=== PATIENT | male | born 1955 | race Caucasian/White ===

== ENCOUNTER → 2016-07-04 | Outpatient (CLI) | payer OTHER ==
[~2016-07-04] MED LIST: ACYC-251 PO; ALBU1AER9 INH; ALLO300T2 PO; AMT50 PO; ASPCH81X PO; ATOR10TA88 PO; BISOPROL PO; CITA40TA12 PO; CLR10 PO; CRFL PO; FLNIN NAE; FLUT110A INH; HYDR-5688 PO; ISOS30TA3 PO; LORA-741 PO; LOSA25TA18 PO; MAGN400T6 PO; METO-157 PO; OMEP20CA9 PO; OPTIRAY 320 IV PRN; OXYC-409 PO; POLY150C12; POTA20TA16 PO; TIOTCAP INH; TRAM-10 PO
--- NOTE | 2016-07-04 12:22 | DIAGNOSTIC IMAGING REPORT ---
CT SCAN OF THE CHEST WITH IV CONTRAST CLINICAL HISTORY: Non-Hodgkin's lymphoma. COMPARISON STUDY: Chest CT scans dated 03/17/2016 and 06/05/2013. TECHNIQUE: Following the IV administration of 118 cc of Optiray 320, CT scan of the thorax was performed from the thoracic inlet to the upper abdomen. Images are reviewed in the axial, sagittal, and coronal planes. IV contrast was administered without complication. CT DOSE: 957.20 mGy.cm FINDINGS: Thyroid: Imaged portions of the thyroid gland are normal in size and attenuation. Thoracic aorta: There is atherosclerotic calcification of the thoracic aorta, which is normal in caliber and demonstrates standard 3-vessel arch anatomy. No dissection is seen. There is approximately 50% focal stenosis identified in the left subclavian artery on axial image #54. A left subclavian central venous infusion port is in place. Pulmonary vasculature: The pulmonary trunk is normal in caliber. There are no filling defects identified in the central pulmonary vessels to indicate pulmonary embolus. Note that this examination was not protocoled for evaluation of the pulmonary arteries. Heart: The heart is normal in size and configuration, and there is trace pericardial fluid. There are scattered coronary artery calcifications. Lungs and pleural spaces: Fluid/secretions are present within the right mainstem bronchus. The trachea appears clear. Mild emphysematous change is observed. There is no airspace consolidation or pleural effusion. Linear scarring is noted in the lingula. There are scattered tiny calcified granulomas. Mediastinum: There is no mediastinal lymphadenopathy. Makenna: Clear. Axillae: There is no axillary lymphadenopathy. Upper abdomen: The liver appears enlarged and steatotic. The spleen is enlarged, measuring 16.2 cm in length. The partially imaged kidneys demonstrate cortical atrophy. Skeletal structures: No lytic or blastic bony lesions are seen. IMPRESSION: 1. There is no lymphadenopathy identified in the thorax. 2. Mild emphysema. 3. No airspace consolidation or pleural effusion is seen. 4. There is high-grade (approximately 50%) stenosis of the left subclavian artery. 5. Hepatomegaly and hepatic steatosis. 6. Splenomegaly. 7. Additional findings as above. Electronically signed by: Yosi Mejia M.D. 07/04/2016 12:21 PM Dictated Date/Time: 07/04/2016 12:15 PM
--- NOTE | 2016-07-04 12:23 | DIAGNOSTIC IMAGING REPORT ---
CT OF THE ABDOMEN AND PELVIS WITH CONTRAST CLINICAL HISTORY: Non-Hodgkin's lymphoma. COMPARISON STUDY: CT of the abdomen and pelvis March 17, 2016. TECHNIQUE: Following IV administration of 118 mL of Optiray-320, axial images of the abdomen and pelvis were obtained from the lung bases to the proximal femurs. Images were reviewed in the axial, sagittal, and coronal planes. IV contrast was administered without complication. Oral contrast was administered. FINDINGS: The chest will be reported separately. Mild splenomegaly is unchanged. There is fatty infiltration of the liver. Several hepatic lesions are unchanged since earlier exams. The lateral segment lesions likely reflect hemangiomas. No new hepatic lesions are present. No enlarged abdominal or pelvic lymph nodes are present. A small left adrenal nodule is unchanged since earlier exams. This is benign given stability. Multifocal scarring of the right kidney is again noted. There is no hydronephrosis. There is no biliary or pancreatic ductal dilatation. Caliber and wall thickness of small and large bowel are normal. There are no suspicious osseous lesions within visualized skeletal structures. IMPRESSION: 1. No abdominal or pelvic lymphadenopathy. 2. Stable splenomegaly. No change in appearance of the abdomen or pelvis since prior exam. Electronically signed by: Callum Olson M.D. 07/04/2016 12:21 PM Dictated Date/Time: 07/04/2016 12:10 PM
== END | disposition home or self-care (01) ==
LOC: C.CTS 09:32
PROVIDERS: ATTEND Internal Medicine Hematology & Oncology
DX: C83.10 Mantle cell lymphoma, unspecified site (principal); R16.1 Splenomegaly, not elsewhere classified; I87.1 Compression of vein; R16.0 Hepatomegaly, not elsewhere classified; K76.0 Fatty (change of) liver, not elsewhere classified

== ENCOUNTER → 2017-03-16 | Outpatient (CLI) | payer OTHER ==
[~2017-03-16] MED LIST changes: +ACYC-223 PO; -ACYC-251 PO; +ATOR10TA82 PO; -ATOR10TA88 PO; -OPTIRAY 320 IV PRN
--- NOTE | 2017-03-16 08:37 | DIAGNOSTIC IMAGING REPORT ---
SINUSES-MAXILLOFACIAL W/O HISTORY: 61 years-old Male J30.9 Allergic sinusitis history of lymphoma. COMPARISON: PET CT 10/26/2013 TECHNIQUE: Multiple axial CT images of the paranasal sinuses maxillofacial bones were obtained without contrast. A dose lowering technique was used consistent with the principals of CALVIN. FINDINGS: Mild mucoperiosteal thickening of the right maxillary sinus and to lesser extent the left maxillary sinus. Polypoid mucosal thickening of the posterior right maxillary antrum measures 1.3 x 1.0 cm. Polypoid mucosal thickening of the anterior left maxillary antrum measures 1.1 x 1.0 cm. Mild mucosal thickening of the ethmoid air cells and inferior frontal sinuses also noted. Sphenoid sinuses are generally patent. Bilateral sphenoethmoidal, frontoethmoidal and bilateral maxillary ostiomeatal units are patent. No Sheeba cell identified. No large nadeem bullosa. Carol sandra appears normal. There is mild leftward bowing and spurring of the nasal septum. Mastoid air cells and middle ear cavities are clear. No acute facial bone fracture identified. Multifocal periodontal disease is noted with pedicle cysts seen involving the right maxillary second molar as seen on image 27 series 301 and image 72 series 3. Streak artifact from dental amalgam limits evaluation of the oral pharynx. Imaged soft tissues are unremarkable. Orbits are symmetric. The imaged intracranial structures demonstrate no acute amount appear there is a suggested arachnoid cyst within the region of the quadrigeminal plate cistern. IMPRESSION: 1. Mild mucoperiosteal thickening of the bilateral maxillary sinuses with areas of multifocal polypoid mucosal disease as above. Mild ethmoid and inferior frontal sinus disease also noted without evidence of maxillary ostiomeatal occlusion. 2. Mild leftward bowing and spurring of the nasal septum. The above report was generated using voice recognition software. It may contain grammatical, syntax or spelling errors. Electronically signed by: Xavier Wilburn M.D. 03/16/2017 8:36 AM Dictated Date/Time: 03/16/2017 8:28 AM
== END | disposition home or self-care (01) ==
LOC: C.CTS 08:05
PROVIDERS: ATTEND Internal Medicine Pulmonary Disease
DX: J30.9 Allergic rhinitis, unspecified (principal)

== ENCOUNTER 2017-03-20 08:27 | Inpatient (IN) | payer OTHER ==
[~2017-03-20] VITALS: Ht 160 cm; Wt 74.5 kg
[2017-03-20] VITALS (20 sets, daily range): BP systolic 108–148; BP diastolic 56–107; PULSE 85–107; TEMP 36.3–37.1; O2SAT 86–99; Ht 160 cm; Wt 74.5 kg
--- NOTE | 2017-03-20 07:28 | Procedure Note ---
Pre-Mod Sedation Assessment General Date of Moderate Sedation: Mar 20, 2017. Pre-Sedation Airway Assessment Smoking Status: Former Smoker Mallampati Classification: Class II ASA Classification: Class II Procedure Planning Contraindications-for Mod Sed: None Yes Notes The planned sedation has been discussed with the patient and consent obtained. I have identified the patient, determined the appropriateness of sedation and have assessed the patient immediately prior to the procedure. All medicine(s) and interventions are by my order.
--- NOTE | 2017-03-20 07:28 | History & Physical Bridge Note ---
H&P Re-Evaluation Bridge Note: I have examined the patient, reviewed the History & Physical and in the interval since the performance of the History & Physical I have noted the following changes of clinical significance: No changes noted
[~2017-03-20 08:27] MED LIST changes: -POLY150C12; +POLY150C12 PO
--- NOTE | 2017-03-20 09:48 | Discharge Instructions ---
Discharge Instructions Date of Service Mar 20, 2017. Admission Reason for Admission: Asthma, Copd, Shortness Of Breath Discharge Discharge Diagnosis / Problem: Chronic mucopurulent bronchitis Discharge Goals Goal(s): Therapeutic intervention Activity Recommendations Activity Limitations: resume your previous activity Lifting Limitations: none Exercise/Sports Limitations: none May Resume Sexual Activity: when tolerated Shower/Bathe: no limitations Driving or Machine Use: no limitations none . Instructions / Follow-Up Instructions / Follow-Up ACTIVITY RECOMMENDATIONS: * Rest today, resume normal activity tomorrow. * Do not drive today. SPECIAL CARE INSTRUCTIONS: * Call your physician if you experience any chest or shoulder pain, fever, coughing, spitting up blood (more than 2 teaspoons) or excessive shortness of breath. * Remove dressing from IV site (where needle was placed into the vein) after 2 hours. Apply a warm, moist compress to site if irritation occurs. Call physician if site becomes red or painful to touch. FOLLOW UP VISIT: * Keep any scheduled doctor appointments. Current Hospital Diet Patient's current hospital diet: Discharge Diet Recommended Diet: Regular Diet Fluid Restriction: None Pending Studies Studies pending at discharge: no Medical Emergencies . Who to Call and When: Medical Emergencies: If at any time you feel your situation is an emergency, please call 911 immediately. . Non-Emergent Contact Non-Emergency issues call your: Network Communications Engineer Call Non-Emergent contact if: temperature is above 101 ACTIVITY RECOMMENDATIONS: * Rest today, resume normal activity tomorrow. * Do not drive today. SPECIAL CARE INSTRUCTIONS: * Call your physician if you experience any chest or shoulder pain, fever, coughing, spitting up blood (more than 2 teaspoons) or excessive shortness of breath. * Remove dressing from IV site (where needle was placed into the vein) after 2 hours. Apply a warm, moist compress to site if irritation occurs. Call physician if site becomes red or painful to touch. FOLLOW UP VISIT: * Keep any scheduled doctor appointments. . . "Provider Documentation" section prepared by Isiah Collins. . VTE Core Measure Inpt VTE Proph given/why not?: Treatment not indicated
[2017-03-20] MEDS ORDERED: NURSING VERBAL MED ORDER ONE ×3 (10:45→20:30)
[2017-03-20] MEDS ORDERED: MIDAZOLAM HCL 5 MG/ML 1 ML VIAL IV ONE (11:00)
[2017-03-20] MEDS ORDERED: FENTANYL CITRATE INJ 50 MCG/1 ML 2 ML VIAL IV ONE (11:00)
[2017-03-20] MEDS ORDERED: METHYLPREDNISOLONE IV 40 MG in SYRINGE 0 ML IV SCH (13:00)
[2017-03-20] MEDS ORDERED: ALBUT/IPRATROP 3MG/0.5MG NEB 3 ML VIAL INH ONE (13:30)
--- NOTE | 2017-03-20 13:43 | OPERATIVE REPORT ---
DATE OF OPERATION: 03/20/2017 PROCEDURE NOTE DATE OF PROCEDURE: 03/20/2017 PROCEDURE: Fiberoptic bronchoscopy with bronchoalveolar lavage. 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 ANESTHESIA PREOPERATIVELY: None. ANESTHESIA DURING PROCEDURE: Versed 5 mg IV, fentanyl 50 mcg IV. PROCEDURE: Fiberoptic bronchoscope was inserted into the right naris with minimal difficulty and passed to the level of the true vocal cords. The cords appeared to approximate normally with phonation without evidence of lesions or paralysis. Significant mucopus was suctioned from the supraglottic region and the cords after being anesthetized, the scope was then introduced in the trachea and right and left tracheobronchial tree. The janie was sharp. The right mainstem bronchus showed copious amount of mucopurulent secretion adherent to the right bronchus intermedius medially. This was lavaged until clear. The right upper lobe, the apical posterior, anterior segments, bronchus intermedius, right middle lobe and the medial and lateral segments and all basilar segments right lower lobe were found to be free of endobronchial lesions with thick mucoviscous and mucopurulent secretion lavaged from all lobar segments until clear. Left tracheobronchial tree was explored and similar findings were noted with thick mucoviscous secretion adherent to the left main stem bronchus and virtually occluding the left upper division. This area was lavaged with normosol and the aspirate sent for appropriate studies. Left upper lobe, the apical-posterior and anterior segments, lingular subdivision and all basilar segments left lower lobe were found to be free of endobronchial lesions with no obvious endobronchial lesions. After copious lavage the procedure was terminated. The patient was given a nebulizer treatment with Xopenex 1.25 mg and transferred to the medical treatment unit hemodynamically stable with no signs of respiratory compromise. Approximately 1 hour after the procedure, the patient complained of chest tightness and was ambulated and showed desaturation in 86% range. He was given a nebulizer treatment again with DuoNeb solution and 40 mg of IV Solu-Medrol and was to be reassessed in 1 hour's time for possible admission. We will await microbiological and cytologic examination of the bronchial washings. I attest to the content of the Intraoperative Record and any orders documented therein. Any exception s are noted below.
[2017-03-20] MEDS ORDERED: ONDANSETRON INJ 2 MG/ML 2 ML VIAL IV PRN (15:00)
[2017-03-20] MEDS ORDERED: POLYETHYLENE (MIRALAX) 17 GM PACK PO PRN (15:00)
[2017-03-20] MEDS ORDERED: BISO5TAB3 PO (15:42)
[2017-03-20] MEDS ORDERED: FLUT1INH7 INH (15:52)
[2017-03-20] MEDS ORDERED: HYDR5SYP11 PO (15:52)
[2017-03-20] MEDS ORDERED: ESCI1TAB18 PO (15:52)
[2017-03-20] MEDS ORDERED: ROSU20TA PO (15:52)
[2017-03-20] MEDS ORDERED: PROMETHAZINE HCL INJ 12.5 MG in SODIUM CHLORIDE 0.9% 50ML 50 ML IV PRN (16:00)
[2017-03-20] MEDS: ALBUT/IPRATROP 3MG/0.5MG NEB 3 ML VIAL INH SCH ×2 (16:00→19:14)
--- NOTE | 2017-03-20 16:33 | History and Physical ---
History & Physical Date & Time of Service: Mar 20, 2017 ~ 15:00 Chief Complaint: Shortness of Breath Primary Care Physician: Дмитрий Galloway M.D. History of Present Illness 61 year old male who presented for a planned bronchoscopy today for evaluation of persistent cough and mucous production. Patient has history of mantel cell lymphoma s/p treatment and currently in remission. He developed a cough about 7 months ago. He has been on several rounds of antibiotics and steroids and symptoms have not improved. Last course of antibiotics and steroids was about 2 months ago. Post procedure today patient developed chest tightness and hypoxia into the mid 80s. He was given nebulizer treatment and IV solumedrol. Chest tightness improved however patient is persistently requiring oxygen which he does not wear at home. He reports that his lungs felt tight. He denies chest pain and pressure. He had some lightheadedness after taking several deep breaths. No other lightheadedness, dizziness, diaphoresis, or syncopal events. He denies abdominal pain, nausea, vomiting, or diarrhea. He denies urinary symptoms. At the time of my exam, patient is resting without acute distress. He is saturating well on 2L oxygen. Past Medical/Surgical History Medical Problems: (1) Anxiety Status: Chronic (2) Asthma, moderate persistent Status: Chronic (3) CAD (coronary artery disease) Status: Chronic (4) COPD, moderate Status: Chronic (5) Depression Status: Chronic (6) GERD (gastroesophageal reflux disease) Status: Chronic (7) HLD (hyperlipidemia) Status: Chronic (8) HTN (hypertension) Status: Chronic (9) Mantle cell lymphoma Permanent Comment: s/p Cladribinel and Rituxan therapy and Rituxan and ofatumumab maintenance therapy currently in remission Status: Chronic Surgical Problems: (1) History of carpal tunnel surgery Status: Chronic (2) History of cataract surgery Status: Chronic Family History Stroke BROTHER Social History Smoking Status: Former Smoker Alcohol Use: none Marital Status: Housing status: lives with family Immunizations History of Influenza Vaccine: Yes Influenza Vaccine Date: Feb 04, 2017 History of Tetanus Vaccine?: Yes Tetanus Immunization Date: Oct 03, 2010 History of Pneumococcal: Yes Pneumococcal Date: Feb 28, 2011 Allergies Coded Allergies: No Known Allergies (Unverified , 03/20/17) Home Medications Scheduled Acyclovir (Zovirax), 400 MG PO BID Albuterol Sulfate (Proair Hfa), 2 PUFFS INH QID PRN Allopurinol (Zyloprim), 1 TAB PO DAILY Amitriptyline Hcl (Elavil), 100 MG PO DAILY Aspirin (Aspirin Chewable), 81 MG PO DAILY Bisoprolol Fumarate (Zebeta), 1 TAB PO DAILY Escitalopram Oxalate (Lexapro), 1 TAB PO DAILY Fluticasone Furoate-Vilanterol (Breo Ellipta 200-25 Mcg/INH), 1 PUFFS INH DAILY Fluticasone Propionate (Flonase Nasal [place]), 2 SPRAYS TEJAS DAILY Fluticasone Propionate Hfa (Flovent Hfa 110MCG Inhaler), 2 PUFF INH DAILY Isosorbide Mononitrate Ext Rel (Imdur Ext Rel), 30 MG PO QAM Losartan Potassium (Cozaar), 25 MG PO DAILY Metoclopramide Hcl (Reglan), 10 MG PO BIDM Omeprazole (Prilosec), 40 MG PO DAILY Polysaccharide Iron Complex (Poly-Iron 150), 1 CAP PO DAILY Rosuvastatin Calcium (Crestor), 1 TAB PO DAILY Sucralfate (Carafate), 10 ML PO BID Scheduled PRN Hydrocodone W/ Homatropine (Hycodan 5/1.5MG 5 Ml), 5 ML PO Q6H PRN for Cough Lorazepam (Ativan), 0.5 MG PO TID PRN for Anxiety Tramadol (Ultram), 50 MG PO Q6H PRN for Pain Review of Systems ROS per HPI, all other systems reviewed and negative Physical Exam Vital Signs Date Time Temp Pulse Resp B/P (MAP) Pulse Ox O2 Delivery O2 Flow Rate FiO2 03/20/17 15:38 36.3 96 18 117/76 (90) 97 Nasal Cannula 2.0 03/20/17 15:05 37 94 18 114/56 99 Nasal Cannula 2 03/20/17 14:12 36.5 90 18 127/65 97 Nasal Cannula 2 03/20/17 13:30 85 18 121/75 96 Room Air 03/20/17 13:06 87 16 99 Nasal Cannula 3.0 03/20/17 12:55 37.1 87 18 118/74 86 Room Air 03/20/17 12:29 36.3 88 18 130/70 94 Room Air 03/20/17 12:09 Mask 03/20/17 11:56 36.4 89 18 126/72 98 Nasal Cannula 3 03/20/17 11:22 92 18 126/73 95 Nasal Cannula 4 03/20/17 11:08 36.4 93 18 127/75 94 Nasal Cannula 4 03/20/17 10:55 36.4 98 16 141/77 93 Nasal Cannula 4 03/20/17 10:43 96 20 114/98 96 Nasal Cannula 4.0 03/20/17 10:38 98 20 148/95 98 Mask 8.0 03/20/17 10:33 96 20 128/107 98 Mask 8.0 03/20/17 10:28 87 20 108/78 98 Mask 8.0 03/20/17 09:55 37.1 96 18 136/78 96 Room Air 03/20/17 09:50 90 21 134/83 98 Mask 8.0 03/20/17 09:33 37.1 96 18 136/78 (97) 96 Room Air General Appearance: WD/WN, no apparent distress Head: normocephalic, atraumatic Eyes: normal inspection, EOMI, sclerae normal ENT: hearing grossly normal, + pertinent finding (mucous membranes moist) Neck: supple, no JVD, trachea midline Respiratory/Chest: no respiratory distress, + decreased breath sounds Cardiovascular: regular rate, rhythm, no edema, normal peripheral pulses Abdomen/GI: normal bowel sounds, non tender, soft, no organomegaly Extremities/Musculoskelatal: normal inspection, no calf tenderness, normal capillary refill Neurologic/Psych: no motor/sensory deficits, alert, normal mood/affect, oriented x 3 Skin: normal color, warm/dry Diagnostics Laboratory Results Results Past 24 Hours Test 03/20/17 14:56 Range/Units Impression Assessment and Plan ACUTE HYPOXIC RESPIRATORY FAILURE HX COPD, ASTHMA - admit to tele - patient presented for planned bronch today for evaluation of persistent cough and mucous production; post procedure patient developed chest tightness and hypoxia into the mid 80s - patient received neb treatment, IV solumedrol, and was placed on oxygen 2L NC ; symptoms have improved however hypoxia persisted - likely has mild COPD/asthma exacerbation post procedure - case discussed with Dr. Collins; concern for possible APBA; had recent labs that showed IGA 200, IGG 830, IGM 33, IGE 14 - results placed on chart - will start Prednisone 40mg daily and doxycycline given prolonged QTC - continue around the clock nebs - wean oxygen as able, may need home O2 eval PROLONGED QTC - 502 - daily EKG - avoid QTC prolonging agents CAD - EKG without acute ST changes - will check cardiac enzymes - continue ASA, beta keenan, nitrate, and statin ANXIETY, DEPRESSION - continue home meds HX MANTLE CELL LYMPHOMA - in remission DVT PROPHYLAXIS - SQ Lovenox DISPO - In my clinical judgment this beneficiary meets acute admission criteria, established by [facility], that includes being hospitalized through two midnights. ADDENDUM: I have seen and examined the patient and agree with the assessment and plan as above. The patient was evaluated post-bronch and appears comfortable, requiring only 2L NC. There is no wheezing on exam and there was no coughing noted during the interview or exam. Exam is otherwise unremarkable. Of note, he did mention some chest discomfort which was related to shortness of breath post-procedure only. There were no associated symptoms, he denies cardiac symptoms recently, and this did not clinically appear to be consistent with a cardiac etiology. EKG was nonischemic and cardiac enzymes are pending. He will be monitored as inpatient because of his persistent hypoxia. Rambo, DO Level of Care Telemetry Resuscitation Status FULL RESUSCITATION VTE Prophylaxis VTE Risk Assessment Done? Y/N: Yes Risk Level: Moderate Given or contraindicated: Enoxaparin (Lovenox)SQ
[2017-03-20 16:34] LABS: HEMATOCRIT 36.5 % (42-52); HEMOGLOBIN 12.2 g/dL (14.0-18.0); MEAN CELL VOLUME 96.8 fL (80-100); MEAN CORPUSCULAR HEMOGLOBIN 32.4 pg (25-34); MEAN CORPUSCULAR HGB CONC 33.4 g/dl (32-36); MEAN PLATELET VOLUME 8.6 fL (7.4-10.4); PLATELET COUNT 105 K/uL (130-400); RED CELL DISTRIBUTION WIDTH SD 59.3 fL (36.4-46.3); WHITE BLOOD COUNT 12.02 K/uL (4.8-10.8)
[2017-03-20 17:14] LABS: ALT/SGPT 30 U/L (12-78); AST/SGOT 15 U/L (15-37); BLOOD UREA NITROGEN 13 mg/dl (7-18); CALCIUM 8.4 mg/dl (8.5-10.1); CARBON DIOXIDE 31 mmol/L (21-32); CREATININE 1.01 mg/dl (0.60-1.40); GLUCOSE 123 mg/dl (70-99); POTASSIUM 4.1 mmol/L (3.5-5.1); SODIUM 137 mmol/L (136-145)
[2017-03-20 17:17] LABS: ALKALINE PHOSPHATASE 106 U/L (45-117); TOTAL PROTEIN 7.2 gm/dl (6.4-8.2)
[2017-03-20 17:50] LABS: BASO % 0.1 %; BASO ABS # 0.01 K/uL (0-0.2); EOS % 0.3 %; EOS ABS # 0.04 K/uL (0-0.5); IG# 0.02 K/uL (0.00-0.02); LYMPH % 2.7 %; LYMPH ABS # 0.33 K/uL (1.2-3.4); MONO % 0.8 %; NEUT % 95.9 %; NEUT ABS # 11.52 K/uL (1.4-6.5)
[2017-03-20 17:59] LABS: CKMB 0.7 ng/ml (0.5-3.6)
[2017-03-20] MEDS: METOCLOPRAMIDE HCL 10 MG TAB PO SCH (18:10)
[2017-03-20] MEDS: DOXYCYCLINE HYCLATE 100 MG CAP PO SCH (18:10)
--- NOTE | 2017-03-20 18:12 | DIAGNOSTIC IMAGING REPORT ---
TWO VIEW CHEST CLINICAL HISTORY: Hypoxia status post bronchoscopy.. FINDINGS: PA and lateral chest radiographs are compared to study dated and correlated with chest CT dated 01/16/2017. A left subclavian central venous infusion port is unchanged in position. The cardiomediastinal silhouette is unremarkable. There is mild atherosclerotic calcification of the thoracic aorta. There are foci of linear atelectasis present at both lung bases. The lungs are otherwise clear. No pleural effusion or pneumothorax is seen. The bony thorax appears intact. IMPRESSION: There is mild bibasilar atelectasis. No acute cardiopulmonary abnormality is seen. Electronically signed by: Yosi Mejia M.D. 03/20/2017 6:11 PM Dictated Date/Time: 03/20/2017 6:09 PM
[2017-03-20] MEDS: SUCRALFATE 1 GM/10 ML UDC PO SCH (20:10)
[2017-03-20] MEDS: LORAZEPAM 0.5 MG TAB PO PRN (20:13)
[2017-03-20] MEDS: ACYCLOVIR 400 MG TAB PO SCH (20:14)
[2017-03-20] MEDS: AMITRIPTYLINE HCL 100 MG TAB PO SCH (20:33)
[2017-03-20] MEDS ORDERED: INFLUENZA ADMINISTRATION CHARGE ONE (23:45)
[2017-03-20] MEDS ORDERED: INFLUENZA VIRUS QUAD VACCINE 0.5 ML SYR IM. ONE (23:45)
[2017-03-21] VITALS (14 sets, daily range): BP systolic 102–133; BP diastolic 59–83; PULSE 96–115; TEMP 36.5–36.8; O2SAT 90–97
[2017-03-21] MEDS: ALBUT/IPRATROP 3MG/0.5MG NEB 3 ML VIAL INH SCH ×2 (01:32→07:11)
[2017-03-21] MEDS: FLUTICASONE HFA 110MCG INHALER INH SCH (07:38)
[2017-03-21] MEDS: IRON COMPLEX POLYSACCHARIDE W/VIT C 150 MG CAP PO SCH (07:39)
[2017-03-21] MEDS: ACYCLOVIR 400 MG TAB PO SCH ×2 (07:39→20:26)
[2017-03-21] MEDS: METOCLOPRAMIDE HCL 10 MG TAB PO SCH ×2 (07:40→16:42)
[2017-03-21] MEDS: DOXYCYCLINE HYCLATE 100 MG CAP PO SCH ×2 (07:40→20:26)
[2017-03-21] MEDS: ROSUVASTATIN CALCIUM 20 MG TAB PO SCH (07:42)
[2017-03-21] MEDS: SUCRALFATE 1 GM/10 ML UDC PO SCH ×2 (07:42→20:28)
[2017-03-21] MEDS: ISOSORBIDE MONONITRATE 30 MG TABCR PO SCH (07:43)
[2017-03-21] MEDS: ESCITALOPRAM OXALATE 20 MG TAB PO SCH (07:43)
[2017-03-21] MEDS: PANTOprazole SOD 40 MG TAB PO SCH (07:43)
[2017-03-21] MEDS: BISOPROLOL FUMARATE 5 MG TAB PO SCH (07:43)
[2017-03-21] MEDS: LOSARTAN POTASSIUM 25 MG TAB PO SCH (07:43)
[2017-03-21] MEDS: ASPIRIN 81 MG ECTAB PO SCH (07:43)
[2017-03-21] MEDS: ENOXAPARIN 40 MG/0.4 ML SYR SC SCH (07:44)
[2017-03-21] MEDS: ALLOPURINOL 300 MG TAB PO SCH (07:44)
[2017-03-21] MEDS ORDERED: AMITRIPTYLINE HCL 100 MG TAB PO SCH (09:00)
[2017-03-21] MEDS ORDERED: NON-FORMULARY MEDICATION (Fluticasone Furoate-Vilanterol (Breo Ellipta 200-25 Mcg/INH) 1 P INH SCH (09:00)
[2017-03-21] MEDS ORDERED: LEVALBUTEROL/IPRATROPIUM NEB INH SCH (09:00)
--- NOTE | 2017-03-21 10:43 | Progress Note ---
Medicine Progress Note Date & Time of Visit: Mar 21, 2017 at 10:37. Subjective patient seen resting in bed, on 2 liters NC states he feels somewhat improved compared to yesterday less cough, still has some dyspnea and dry cough denies chest pain reports feeling anxious, tremulous no other symptoms Objective Last 8 Hrs Date Time Temp Pulse Resp B/P (MAP) Pulse Ox O2 Delivery O2 Flow Rate FiO2 03/21/17 08:20 36.7 107 18 117/75 (89) 96 03/21/17 07:11 104 16 97 Nasal Cannula 2.0 03/21/17 04:45 36.5 107 18 133/83 (100) 97 Nasal Cannula 1.0 03/21/17 04:00 Nasal Cannula 1.0 Physical Exam: General- oriented x 3, not in distress Head- atraumatic Eyes- PERRL, EOMI, anicteric ENT- oropharynx clear Neck- supple, no JVD, no adenopathy, no thyromegaly Lungs- distant breath sounds but good air entry, no wheezing, mild rales right base Heart- regular rhythm; no murmur, no gallop, no rub appreciated Abdomen- normal bowel sounds, soft, nontender, no masses or hepatosplenomegaly Extremities- no pretibial edema, no calf tenderness; peripheral pulses intact Neuro- alert, oriented x 3; PERRL, EOMI; no facial palsy; no dysarthria; motor 5 /5 bilaterally; no cogwheel rigidity; patellar DTRs +2/2; toes downgoing bilaterally; finger to nose intact bilaterally Skin- warm & dry Laboratory Results: Last 24 Hours Test 03/20/17 16:20 White Blood Count 12.02 K/uL Red Blood Count 3.77 M/uL Hemoglobin 12.2 g/dL Hematocrit 36.5 % Mean Corpuscular Volume 96.8 fL Mean Corpuscular Hemoglobin 32.4 pg Mean Corpuscular Hemoglobin Concent 33.4 g/dl Platelet Count 105 K/uL Mean Platelet Volume 8.6 fL Neutrophils (%) (Auto) 95.9 % Lymphocytes (%) (Auto) 2.7 % Monocytes (%) (Auto) 0.8 % Eosinophils (%) (Auto) 0.3 % Basophils (%) (Auto) 0.1 % Neutrophils # (Auto) 11.52 K/uL Lymphocytes # (Auto) 0.33 K/uL Monocytes # (Auto) 0.10 K/uL Eosinophils # (Auto) 0.04 K/uL Basophils # (Auto) 0.01 K/uL RDW Standard Deviation 59.3 fL RDW Coefficient of Variation 17.0 % Immature Granulocyte % (Auto) 0.2 % Immature Granulocyte # (Auto) 0.02 K/uL Prothrombin Time 10.9 SECONDS Prothromb Time International Ratio 1.0 Sodium Level 137 mmol/L Potassium Level 4.1 mmol/L Chloride Level 101 mmol/L Carbon Dioxide Level 31 mmol/L Anion Gap 5.0 mmol/L Blood Urea Nitrogen 13 mg/dl Creatinine 1.01 mg/dl Est Creatinine Clear Calc Drug Dose 67.9 ml/min Estimated GFR () 92.0 Estimated GFR (Non- 79.3 BUN/Creatinine Ratio 12.9 Random Glucose 123 mg/dl Calcium Level 8.4 mg/dl Total Bilirubin 1.2 mg/dl Aspartate Amino Transf (AST/SGOT) 15 U/L Alanine Aminotransferase (ALT/SGPT) 30 U/L Alkaline Phosphatase 106 U/L Total Creatine Kinase 48 U/L Creatine Kinase MB 0.7 ng/ml Creatine Kinase MB Ratio 1.5 Troponin I < 0.015 ng/ml Total Protein 7.2 gm/dl Albumin 4.0 gm/dl Globulin 3.2 gm/dl Albumin/Globulin Ratio 1.3 Assessment & Plan ACUTE HYPOXIC RESPIRATORY FAILURE s/p BRONCHOSCOPY POSSIBLE COPD/ASTHMA EXACERBATION - possible APBA? - CXR: no acute infiltrates - ff up Bronch Washing studies - on Prednisone, Doxycycline, Nebs improving gradually Pulm Consulted PROLONGED QTC - 502--> 479 - avoid QTC prolonging agents CAD - EKG without acute ST changes enzymes negative - continue ASA, beta keenan, nitrate, and statin ANXIETY, DEPRESSION - continue home meds HX MANTLE CELL LYMPHOMA - in remission DVT PROPHYLAXIS - SQ Lovenox DISPO pending anticipate d/c home when medically stable Current Inpatient Medications: Current Inpatient Medications Medications (Trade) Dose Ordered Sig/Hari Route Start Time Stop Time Status Last Admin Dose Admin Enoxaparin Sodium (Lovenox Inj) 40 mg DAILY SC 03/21/17 09:00 04/20/17 08:59 03/21/17 07:44 40 MG Acetaminophen (Tylenol Tab) 650 mg Q6H PRN PO 03/20/17 15:00 04/19/17 14:59 Polyethylene (Miralax Powder Packet) 17 gm DAILY PRN PO 03/20/17 15:00 04/19/17 14:59 Promethazine HCl 12.5 mg/Sodium Chloride 50.5 ml @ 204 mls/hr Q6H PRN IV 03/20/17 16:00 04/19/17 15:59 Prednisone (PredniSONE TAB) 40 mg DAILY PO 03/20/17 21:00 04/19/17 20:59 03/21/17 07:39 40 MG Doxycycline Hyclate (Vibramycin Cap) 100 mg BID PO 03/20/17 18:00 03/27/17 17:59 03/21/17 07:40 100 MG Acyclovir (Zovirax Tab) 400 mg BID PO 03/20/17 21:00 04/19/17 20:59 03/21/17 07:39 400 MG Allopurinol (Zyloprim Tab) 300 mg DAILY PO 03/21/17 09:00 04/20/17 08:59 03/21/17 07:44 300 MG Aspirin (Ecotrin Tab) 81 mg QAM PO 03/21/17 09:00 04/20/17 08:59 03/21/17 07:43 81 MG Escitalopram Oxalate (Lexapro Tab) 20 mg DAILY PO 03/21/17 09:00 04/20/17 08:59 03/21/17 07:43 20 MG Fluticasone Propionate (Flovent Hfa 110MCG Inhaler) 1 puffs DAILY INH 03/21/17 09:00 04/20/17 08:59 03/21/17 07:38 1 PUFFS Isosorbide Mononitrate (Imdur Ext Rel Tab) 30 mg QAM PO 03/21/17 09:00 04/20/17 08:59 03/21/17 07:43 30 MG Lorazepam (Ativan Tab) 0.5 mg TID PRN PO 03/20/17 16:15 04/19/17 16:14 03/20/17 20:13 0.5 MG Losartan Potassium (coZAAR TAB) 25 mg DAILY PO 03/21/17 09:00 04/20/17 08:59 03/21/17 07:43 25 MG Metoclopramide HCl (Reglan Tab) 10 mg BIDM PO 03/20/17 17:00 04/19/17 16:59 03/21/17 07:40 10 MG Polysaccharide Iron Complex (Niferex-150 w/ Vit C Cap) 150 mg DAILY PO 03/21/17 09:00 04/20/17 08:59 03/21/17 07:39 150 MG Rosuvastatin Calcium (Crestor Tab) 20 mg DAILY PO 03/21/17 09:00 04/20/17 08:59 03/21/17 07:42 20 MG Sucralfate (Carafate Susp) 1 gm BID PO 03/20/17 21:00 04/19/17 20:59 03/21/17 07:42 1 GM Tramadol HCl (Ultram Tab) 50 mg Q6H PRN PO 03/20/17 16:15 04/19/17 16:14 Bisoprolol Fumarate (Bisoprolol Fumarate) 5 mg DAILY PO 03/21/17 09:00 04/20/17 08:59 03/21/17 07:43 5 MG Pantoprazole Sodium (Protonix Tab) 40 mg QAM PO 03/21/17 09:00 04/20/17 08:59 03/21/17 07:43 40 MG Miscellaneous Information (Order Awaiting Action) 1 ea QS N/A 03/21/17 00:00 04/20/17 00:00 Amitriptyline HCl (Elavil Tab) 100 mg DAILY@2100 PO 03/20/17 21:00 04/19/17 20:59 03/20/17 20:33 100 MG Heparin Sodium (Porcine) (Heparin 100 Unit/ml 5ml Flush) 5 ml PRN PRN IV 03/21/17 01:45 04/20/17 01:44 Ipratropium [place] (Atrovent 0.02% 0.5MG/2.5ML Neb) 0.5 mg Q6R INH 03/21/17 15:00 04/20/17 14:59 Levalbuterol (Xopenex 1.25MG/ 0.5ML Neb) 1.25 mg Q6R INH 03/21/17 15:00 04/20/17 14:59
--- NOTE | 2017-03-21 11:50 | PULMONARY CONSULTATION ---
DATE OF CONSULTATION: 03/21/2017 TIME: 11:15 a.m. REPORT OF CONSULTATION: The patient was seen in room #286. He is a 61-year-old male with a history of COPD. His breathing problems started approximately at age 49. He had a longstanding history of smoking. The patient quit smoking 7 years ago, but prior to that smoked 1 pack per day for 38 years. Since August of this year, he has had a progressive cough. He would bring up some mucus that would be dark richards to green in color. He has not coughed up any blood. He does cough daily. Sometimes, he will have near tussive syncope from coughing. He describes having episodes of a sensation after a severe cough that his left hand and left leg feel like they are floating. He states his doctor did Dopplers of the left upper and left lower extremity and they were negative. He sometimes will get that sensation also when he is sitting down and stands up quickly. He had been treated for this cough on several occasions with antibiotics and steroids and had not improved. Yesterday, Dr. Collins did bronchoscopy. This showed large quantities of secretions throughout the entire tracheobronchial tree. He described it as thick mucoviscous and mucopurulent. Following the procedure, the patient felt tight in the chest. Also, his oxygen saturations were decreased. He was watched for an hour or two and ultimately a decision was made to admit him. He has not been on oxygen previously at home. Today, the patient feels somewhat better, but he still feels a little tight in the chest. He is now maintained on low-flow oxygen of 1 liter. PAST MEDICAL HISTORY: 1. Mantle cell lymphoma 2. Nephrolithiasis. 3. GERD. 4. Hypercholesterolemia. 5. Hypertension. 6. 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 7. Anxiety. 8. Depression. PAST SURGICAL HISTORY: 1. Carpal tunnel surgery. 2. Cataract surgery. 3. Lithotripsy. ALLERGIES: No known allergies. SOCIAL HISTORY: Tobacco - 38 pack years as noted above. ETOH - very occasionally. FAMILY HISTORY: Mother had breast cancer. Brother had testicular cancer. Maternal grandfather had laryngeal cancer. Brother had cerebrovascular disease. REVIEW OF SYSTEMS: In addition to the above-mentioned complaints, the patient feels that his energy level is low. He feels that he fills up quickly when he is eating and he eats less than in the past. In spite of this, he is not losing weight. The remainder is otherwise negative. Ten systems reviewed. PULMONARY MEDICINES AT HOME: Include Breo Ellipta, Ventolin, and neb treatments with albuterol/ipratropium. He takes the neb treatments at least once per day. PHYSICAL EXAMINATION: VITAL SIGNS: The patient is a 61-year-old male who was cooperative, alert and oriented. He was in no distress. Temperature was 36.7. HEENT: Eye exam suggest prior cataract surgery. Nares were clear. Mouth exam was unremarkable. NECK: Palpation of the neck reveals no lymph nodes. CHEST: Normal expansion and development HEART: Heart rate is elevated at 106 per minute. The rhythm is regular. Lung cano revealed diminished breath sounds. Wheezing was heard when the patient was asked to do a forced vital capacity maneuver. This was bilateral and better heard posteriorly. Respiratory rate was 18 per minute. Blood pressure 117/75. Current saturation 95% on 1 liter. ABDOMEN: Soft. Bowel sounds were normal. There was no tenderness to palpation, masses, or organomegaly. EXTREMITIES: Showed no cyanosis, clubbing or edema. IMAGING DATA: The patient had a chest x-ray done yesterday. This showed no acute abnormality. There was mild bibasilar atelectatic changes. LABORATORY DATA: White count is 12.02. Hemoglobin 12.2. Platelets were decreased to 105,000. INR was 1. Electrolytes showed sodium 137, potassium 4.1, chloride 101, bicarbonate 31. BUN is 13 with a creatinine of 1.01. Blood sugar 123. Bilirubin 1.2. AST, ALT, and alkaline phosphatase were normal. Troponin was negative. Gram stain of the lavaged fluid cannot be retrieved at present. IMPRESSION: 1. Chronic obstructive pulmonary disease with exacerbation. 2. Retention of secretions. 3. Mild hypoxia. COMMENTS AND RECOMMENDATIONS: The patient is still having some symptoms more than normal. He is on levalbuterol and ipratropium q. 6 hours. He is on enoxaparin preventatively. He is on prednisone 40 mg daily. In light of the fact he is not feeling better, I am going to give him 1 dose of Solu-Medrol. I am also going to order a vibration vest and flutter valve to try and assist with his secretion removal. Hopefully, the patient will be able to be discharged soon. I would increase activity and get him ambulating. Thank you for asking me to assist in his care.
[2017-03-21] MEDS: LORAZEPAM 0.5 MG TAB PO PRN (13:51)
[2017-03-21] MEDS: IPRATROPIUM BROMIDE NEB SOLN 0.02% 2.5 ML VIAL INH SCH ×2 (14:12→19:49)
[2017-03-21] MEDS: LEVALBUTEROL 1.25MG/0.5ML NEB INH SCH ×2 (14:12→19:49)
[2017-03-21] MEDS ORDERED: METHYLPREDNISOLONE IV 40 MG in SYRINGE 0 ML IV SCH (16:00)
[2017-03-21] MEDS: AMITRIPTYLINE HCL 100 MG TAB PO SCH (20:26)
[2017-03-22] VITALS (12 sets, daily range): BP systolic 99–133; BP diastolic 58–83; PULSE 72–105; TEMP 36.5–36.7; O2SAT 91–98
[2017-03-22] MEDS: LEVALBUTEROL 1.25MG/0.5ML NEB INH SCH ×4 (02:05→19:36)
[2017-03-22] MEDS: IPRATROPIUM BROMIDE NEB SOLN 0.02% 2.5 ML VIAL INH SCH ×4 (02:05→19:35)
[2017-03-22] MEDS: PANTOprazole SOD 40 MG TAB PO SCH (07:54)
[2017-03-22] MEDS: ACYCLOVIR 400 MG TAB PO SCH ×2 (07:55→20:37)
[2017-03-22] MEDS: IRON COMPLEX POLYSACCHARIDE W/VIT C 150 MG CAP PO SCH (07:55)
[2017-03-22] MEDS: ROSUVASTATIN CALCIUM 20 MG TAB PO SCH (07:55)
[2017-03-22] MEDS: DOXYCYCLINE HYCLATE 100 MG CAP PO SCH ×2 (07:55→20:36)
[2017-03-22] MEDS: ALLOPURINOL 300 MG TAB PO SCH (07:55)
[2017-03-22] MEDS: ASPIRIN 81 MG ECTAB PO SCH (07:55)
[2017-03-22] MEDS: ESCITALOPRAM OXALATE 20 MG TAB PO SCH (07:56)
[2017-03-22] MEDS: ISOSORBIDE MONONITRATE 30 MG TABCR PO SCH (07:56)
[2017-03-22] MEDS: LOSARTAN POTASSIUM 25 MG TAB PO SCH (07:56)
[2017-03-22] MEDS: METOCLOPRAMIDE HCL 10 MG TAB PO SCH ×2 (07:56→15:47)
[2017-03-22] MEDS: BISOPROLOL FUMARATE 5 MG TAB PO SCH (07:56)
[2017-03-22] MEDS: SUCRALFATE 1 GM/10 ML UDC PO SCH ×2 (07:58→20:36)
[2017-03-22] MEDS: FLUTICASONE HFA 110MCG INHALER INH SCH (07:58)
[2017-03-22] MEDS: ENOXAPARIN 40 MG/0.4 ML SYR SC SCH (07:59)
--- NOTE | 2017-03-22 08:45 | PULMONARY PROGRESS NOTE ---
DATE: 03/22/2017 TIME: 8:05 a.m. SUBJECTIVE: The patient feels less tight in the chest. He still feels tighter than normal. His cough is overall less. He is not expectorating any phlegm. Later in the day yesterday, nursing staff was finding he still needed to have low-flow oxygen. The patient has been having a persistent sinus tachycardia. OBJECTIVE: GENERAL: The patient appears comfortable. Temperature is 36.5. EARS, NOSE, THROAT: Unremarkable. VITAL SIGNS: Heart rate currently is 116 per minute. The rhythm is sinus tachycardia. LUNGS: Lung cano revealed mildly decreased breath sounds. No wheezing was heard. Respiratory rate was 18. Oxygen saturation on 1 liter was 97%. Blood pressure this morning 133/83. EXTREMITIES: Showed no cyanosis, clubbing or edema. LABORATORY DATA: Bronchial washings from bronchoscopy are reporting normal musa. Rare bacteria were seen. Fungal smear was negative. IMPRESSIONS: 1. Chronic obstructive pulmonary disease with exacerbation. 2. Retained secretions. COMMENTS AND RECOMMENDATIONS: The patient seems reasonably well. His heart rate currently is elevated. He states he has noticed this for the past couple of months when he would go to the doctor. I do not know if he knew specifically how fast his heart rates were going. He is sitting up to eat at present. He certainly does not seem to have any distress. I spoke with nursing who will get him ambulating. Following discharge, he should follow up with Dr. Collins in a week or so. If he persists with the tachycardia, that may need to be looked into as well.
[2017-03-22] MEDS: LORAZEPAM 0.5 MG TAB PO PRN ×2 (15:47→21:46)
[2017-03-22] MEDS: ACETAMINOPHEN 325 MG TAB PO PRN (16:30)
--- NOTE | 2017-03-22 18:36 | Progress Note ---
Medicine Progress Note Date & Time of Visit: Mar 22, 2017 at 18:28. Subjective patient seen resting in bed, comfortable states he feels somewhat improved today less dyspnea and cough, no other symptoms Objective Last 8 Hrs Date Time Temp Pulse Resp B/P (MAP) Pulse Ox O2 Delivery O2 Flow Rate FiO2 03/22/17 16:01 94 Nasal Cannula 1.0 03/22/17 15:33 36.5 91 18 110/68 (82) 91 Room Air 03/22/17 14:10 102 14 95 Room Air 03/22/17 12:07 36.5 90 18 112/75 (87) 94 2.0 03/22/17 12:01 94 Nasal Cannula 1.0 Physical Exam: General- oriented x 3, not in distress Eyes- anicteric ENT- oropharynx clear Neck- no JVD Lungs- faint wheeze bilaterally, good air entry Heart- regular rhythm; no murmur, normal rate Abdomen- normal bowel sounds, soft, nontender Extremities- no pretibial edema, no calf tenderness Neuro- alert, oriented x 3; no gross focal deficits Skin- warm & dry Assessment & Plan ACUTE HYPOXIC RESPIRATORY FAILURE s/p BRONCHOSCOPY POSSIBLE COPD/ASTHMA EXACERBATION - CXR: no acute infiltrates -Bronch Washing studies: negative so far - on Prednisone, Doxycycline, Nebs improving gradually daily Pulm Consulted PROLONGED QTC - 502--> 479 - avoid QTC prolonging agents CAD - EKG without acute ST changes enzymes negative - continue ASA, beta keenan, nitrate, and statin ANXIETY, DEPRESSION - continue home meds HX MANTLE CELL LYMPHOMA - in remission DVT PROPHYLAXIS - SQ Lovenox DISPO pending anticipate d/c home when medically stable Current Inpatient Medications: Current Inpatient Medications Medications (Trade) Dose Ordered Sig/Hari Route Start Time Stop Time Status Last Admin Dose Admin Enoxaparin Sodium (Lovenox Inj) 40 mg DAILY SC 03/21/17 09:00 04/20/17 08:59 03/22/17 07:59 40 MG Acetaminophen (Tylenol Tab) 650 mg Q6H PRN PO 03/20/17 15:00 04/19/17 14:59 03/22/17 16:30 650 MG Polyethylene (Miralax Powder Packet) 17 gm DAILY PRN PO 03/20/17 15:00 04/19/17 14:59 Promethazine HCl 12.5 mg/Sodium Chloride 50.5 ml @ 204 mls/hr Q6H PRN IV 03/20/17 16:00 04/19/17 15:59 Prednisone (PredniSONE TAB) 40 mg DAILY PO 03/20/17 21:00 04/19/17 20:59 03/22/17 07:55 40 MG Doxycycline Hyclate (Vibramycin Cap) 100 mg BID PO 03/20/17 18:00 03/27/17 17:59 03/22/17 07:55 100 MG Acyclovir (Zovirax Tab) 400 mg BID PO 03/20/17 21:00 04/19/17 20:59 03/22/17 07:55 400 MG Allopurinol (Zyloprim Tab) 300 mg DAILY PO 03/21/17 09:00 04/20/17 08:59 03/22/17 07:55 300 MG Aspirin (Ecotrin Tab) 81 mg QAM PO 03/21/17 09:00 04/20/17 08:59 03/22/17 07:55 81 MG Escitalopram Oxalate (Lexapro Tab) 20 mg DAILY PO 03/21/17 09:00 04/20/17 08:59 03/22/17 07:56 20 MG Fluticasone Propionate (Flovent Hfa 110MCG Inhaler) 1 puffs DAILY INH 03/21/17 09:00 04/20/17 08:59 03/22/17 07:58 1 PUFFS Isosorbide Mononitrate (Imdur Ext Rel Tab) 30 mg QAM PO 03/21/17 09:00 04/20/17 08:59 03/22/17 07:56 30 MG Lorazepam (Ativan Tab) 0.5 mg TID PRN PO 03/20/17 16:15 04/19/17 16:14 03/22/17 15:47 0.5 MG Losartan Potassium (coZAAR TAB) 25 mg DAILY PO 03/21/17 09:00 04/20/17 08:59 03/22/17 07:56 25 MG Metoclopramide HCl (Reglan Tab) 10 mg BIDM PO 03/20/17 17:00 04/19/17 16:59 03/22/17 15:47 10 MG Polysaccharide Iron Complex (Niferex-150 w/ Vit C Cap) 150 mg DAILY PO 03/21/17 09:00 04/20/17 08:59 03/22/17 07:55 150 MG Rosuvastatin Calcium (Crestor Tab) 20 mg DAILY PO 03/21/17 09:00 04/20/17 08:59 03/22/17 07:55 20 MG Sucralfate (Carafate Susp) 1 gm BID PO 03/20/17 21:00 04/19/17 20:59 03/22/17 07:58 1 GM Tramadol HCl (Ultram Tab) 50 mg Q6H PRN PO 03/20/17 16:15 04/19/17 16:14 Bisoprolol Fumarate (Bisoprolol Fumarate) 5 mg DAILY PO 03/21/17 09:00 04/20/17 08:59 03/22/17 07:56 5 MG Pantoprazole Sodium (Protonix Tab) 40 mg QAM PO 03/21/17 09:00 04/20/17 08:59 03/22/17 07:54 40 MG Miscellaneous Information (Order Awaiting Action) 1 ea QS N/A 03/21/17 00:00 04/20/17 00:00 Amitriptyline HCl (Elavil Tab) 100 mg DAILY@2100 PO 03/20/17 21:00 04/19/17 20:59 03/21/17 20:26 100 MG Heparin Sodium (Porcine) (Heparin 100 Unit/ml 5ml Flush) 5 ml PRN PRN IV 03/21/17 01:45 04/20/17 01:44 03/21/17 16:55 5 ML Ipratropium [place] (Atrovent 0.02% 0.5MG/2.5ML Neb) 0.5 mg Q6R INH 03/21/17 15:00 04/20/17 14:59 03/22/17 14:10 0.5 MG Levalbuterol (Xopenex 1.25MG/ 0.5ML Neb) 1.25 mg Q6R INH 03/21/17 15:00 04/20/17 14:59 03/22/17 14:10 1.25 MG
[2017-03-22] MEDS: AMITRIPTYLINE HCL 100 MG TAB PO SCH (20:36)
[2017-03-23] VITALS (12 sets, daily range): BP systolic 96–135; BP diastolic 57–77; PULSE 80–102; TEMP 36.3–36.9; O2SAT 92–98
[2017-03-23] MEDS: IPRATROPIUM BROMIDE NEB SOLN 0.02% 2.5 ML VIAL INH SCH ×4 (02:08→19:52)
[2017-03-23] MEDS: LEVALBUTEROL 1.25MG/0.5ML NEB INH SCH ×4 (02:08→19:52)
[2017-03-23] MEDS: DOXYCYCLINE HYCLATE 100 MG CAP PO SCH ×2 (08:48→20:46)
[2017-03-23] MEDS: ESCITALOPRAM OXALATE 20 MG TAB PO SCH (08:48)
[2017-03-23] MEDS: ISOSORBIDE MONONITRATE 30 MG TABCR PO SCH (08:48)
[2017-03-23] MEDS: FLUTICASONE HFA 110MCG INHALER INH SCH (08:49)
[2017-03-23] MEDS: PANTOprazole SOD 40 MG TAB PO SCH (08:49)
[2017-03-23] MEDS: LOSARTAN POTASSIUM 25 MG TAB PO SCH (08:49)
[2017-03-23] MEDS: METOCLOPRAMIDE HCL 10 MG TAB PO SCH ×2 (08:49→17:42)
[2017-03-23] MEDS: ASPIRIN 81 MG ECTAB PO SCH (08:50)
[2017-03-23] MEDS: IRON COMPLEX POLYSACCHARIDE W/VIT C 150 MG CAP PO SCH (08:50)
[2017-03-23] MEDS: ACYCLOVIR 400 MG TAB PO SCH ×2 (08:50→20:46)
[2017-03-23] MEDS: ALLOPURINOL 300 MG TAB PO SCH (08:50)
[2017-03-23] MEDS: ROSUVASTATIN CALCIUM 20 MG TAB PO SCH (08:50)
[2017-03-23] MEDS: SUCRALFATE 1 GM/10 ML UDC PO SCH ×2 (08:51→20:45)
[2017-03-23] MEDS: BISOPROLOL FUMARATE 5 MG TAB PO SCH (08:51)
[2017-03-23] MEDS: ENOXAPARIN 40 MG/0.4 ML SYR SC SCH (08:52)
[2017-03-23] MEDS: ACETAMINOPHEN 325 MG TAB PO PRN (13:46)
--- NOTE | 2017-03-23 15:53 | Progress Note ---
Medicine Progress Note Date & Time of Visit: Mar 23, 2017 at 15:50. Subjective seen resting in bed, comfortable walked in the halls today, felt dyspneic after, o2 sas 87%, placed back on NC also reports increased sputum - greenish denies chest pain no other symptoms Objective Last 8 Hrs Date Time Temp Pulse Resp B/P (MAP) Pulse Ox O2 Delivery O2 Flow Rate FiO2 03/23/17 15:18 36.9 98 20 105/71 (82) 92 Room Air 03/23/17 14:46 96 14 98 Nasal Cannula 2.0 03/23/17 12:00 Room Air 03/23/17 11:54 36.8 96 18 96/57 (70) 92 Room Air 03/23/17 08:00 Room Air 03/23/17 08:00 36.7 93 18 114/71 (85) 97 Room Air 03/23/17 07:55 99 14 93 Room Air Physical Exam: General- oriented x 3, not in distress Neck- no JVD Lungs- mild wheeze bilaterally, (+) crackles on the left base, good air entry Heart- regular rhythm; no murmur, normal rate Abdomen- normal bowel sounds, soft, nontender Extremities- no pretibial edema, no calf tenderness Neuro- alert, oriented x 3; no gross focal deficits Skin- warm & dry Laboratory Results: Last 24 Hours Test 03/23/17 12:45 Hepatitis C Antibody Screen NEG Assessment & Plan ACUTE HYPOXIC RESPIRATORY FAILURE s/p BRONCHOSCOPY POSSIBLE COPD/ASTHMA EXACERBATION - CXR: no acute infiltrates - Bronch Washing studies: negative so far - on Prednisone, Doxycycline, Nebs - (+) still wheezing, increased sputum discussed with Dr. Mishra, awaiting further recommendations PROLONGED QTC - 502--> 479 - avoid QTC prolonging agents CAD - EKG without acute ST changes enzymes negative - continue ASA, beta keenan, nitrate, and statin ANXIETY, DEPRESSION - continue home meds HX MANTLE CELL LYMPHOMA - in remission DVT PROPHYLAXIS - SQ Lovenox DISPO pending anticipate d/c home when medically stable Current Inpatient Medications: Current Inpatient Medications Medications (Trade) Dose Ordered Sig/Hari Route Start Time Stop Time Status Last Admin Dose Admin Enoxaparin Sodium (Lovenox Inj) 40 mg DAILY SC 03/21/17 09:00 04/20/17 08:59 03/23/17 08:52 40 MG Acetaminophen (Tylenol Tab) 650 mg Q6H PRN PO 03/20/17 15:00 04/19/17 14:59 03/23/17 13:46 650 MG Polyethylene (Miralax Powder Packet) 17 gm DAILY PRN PO 03/20/17 15:00 04/19/17 14:59 Promethazine HCl 12.5 mg/Sodium Chloride 50.5 ml @ 204 mls/hr Q6H PRN IV 03/20/17 16:00 04/19/17 15:59 Prednisone (PredniSONE TAB) 40 mg DAILY PO 03/20/17 21:00 04/19/17 20:59 03/23/17 08:49 40 MG Doxycycline Hyclate (Vibramycin Cap) 100 mg BID PO 03/20/17 18:00 03/27/17 17:59 03/23/17 08:48 100 MG Acyclovir (Zovirax Tab) 400 mg BID PO 03/20/17 21:00 04/19/17 20:59 03/23/17 08:50 400 MG Allopurinol (Zyloprim Tab) 300 mg DAILY PO 03/21/17 09:00 04/20/17 08:59 03/23/17 08:50 300 MG Aspirin (Ecotrin Tab) 81 mg QAM PO 03/21/17 09:00 04/20/17 08:59 03/23/17 08:50 81 MG Escitalopram Oxalate (Lexapro Tab) 20 mg DAILY PO 03/21/17 09:00 04/20/17 08:59 03/23/17 08:48 20 MG Fluticasone Propionate (Flovent Hfa 110MCG Inhaler) 1 puffs DAILY INH 03/21/17 09:00 04/20/17 08:59 03/23/17 08:49 1 PUFFS Isosorbide Mononitrate (Imdur Ext Rel Tab) 30 mg QAM PO 03/21/17 09:00 04/20/17 08:59 03/23/17 08:48 30 MG Lorazepam (Ativan Tab) 0.5 mg TID PRN PO 03/20/17 16:15 04/19/17 16:14 03/22/17 21:46 0.5 MG Losartan Potassium (coZAAR TAB) 25 mg DAILY PO 03/21/17 09:00 04/20/17 08:59 03/23/17 08:49 25 MG Metoclopramide HCl (Reglan Tab) 10 mg BIDM PO 03/20/17 17:00 04/19/17 16:59 03/23/17 08:49 10 MG Polysaccharide Iron Complex (Niferex-150 w/ Vit C Cap) 150 mg DAILY PO 03/21/17 09:00 04/20/17 08:59 03/23/17 08:50 150 MG Rosuvastatin Calcium (Crestor Tab) 20 mg DAILY PO 03/21/17 09:00 04/20/17 08:59 03/23/17 08:50 20 MG Sucralfate (Carafate Susp) 1 gm BID PO 03/20/17 21:00 04/19/17 20:59 03/23/17 08:51 1 GM Tramadol HCl (Ultram Tab) 50 mg Q6H PRN PO 03/20/17 16:15 04/19/17 16:14 Bisoprolol Fumarate (Bisoprolol Fumarate) 5 mg DAILY PO 03/21/17 09:00 04/20/17 08:59 03/23/17 08:51 5 MG Pantoprazole Sodium (Protonix Tab) 40 mg QAM PO 03/21/17 09:00 04/20/17 08:59 03/23/17 08:49 40 MG Miscellaneous Information (Order Awaiting Action) 1 ea QS N/A 03/21/17 00:00 04/20/17 00:00 Amitriptyline HCl (Elavil Tab) 100 mg DAILY@2100 PO 03/20/17 21:00 04/19/17 20:59 03/22/17 20:36 100 MG Heparin Sodium (Porcine) (Heparin 100 Unit/ml 5ml Flush) 5 ml PRN PRN IV 03/21/17 01:45 04/20/17 01:44 03/21/17 16:55 5 ML Ipratropium [place] (Atrovent 0.02% 0.5MG/2.5ML Neb) 0.5 mg Q6R INH 03/21/17 15:00 04/20/17 14:59 03/23/17 14:46 0.5 MG Levalbuterol (Xopenex 1.25MG/ 0.5ML Neb) 1.25 mg Q6R INH 03/21/17 15:00 04/20/17 14:59 03/23/17 14:46 1.25 MG
[2017-03-23] MEDS ORDERED: BENZONATATE 100MG CAP PO ONE (18:30)
--- NOTE | 2017-03-23 18:30 | Pulmonology Progress Note ---
Pulmonary Progress Note Date of Service Mar 23, 2017. Attending Dr. Mishra Subjective Patient seen and examined at bedside this evening. He just took a walk around the hallways. He attempted two walks around the hallway, but was only able to complete one secondary to shortness of breath. He still has intermittent chest tightness and wheezing. Sometimes feels as if he is unable to bring up sputum. Still with cough. Objective VS reviewed. MAXIMUM TEMPERATURE 36.9, blood pressure 96/57 to 114/71, pulse 93 -102, respiratory rate 14-20, pulse oximetry 92-98% on 2-2 L nasal cannula. CVS: S1, S2, RRR Lungs: good air entry bilaterally, no wheezes appreciated. Mild crackles at bases. Abd: soft/NT/ND/BS+ Ext: no edema bilaterally Labs reviewed. No new labs for today. Bronchial washings R and L upper lobe-- no AFB, moderate normal musa, yeast- not ajay albicans. Bronchial wash cytology--few benign squamous and bronchial epithelial cells, mucus, few pulmonary macrophages and few neutrophils, no malignant cells seen. Imaging reviewed and viewed by me. Medications reviewed. Respiratory medications include: Atrovent and Xopenex nebulizer every 6 hours, Lovenox 40 mg daily subcutaneous, Flovent HFA 1 puff daily, prednisone 40 mg daily, doxycycline 100 mg twice a day by mouth Assessment & Plan COPD with exacerbation Recommendations Patient appears to be improving from a respiratory standpoint. He appears to be in no acute respiratory distress is speaking well in full sentences and ambulating today with minimal dyspnea. He still does have some mild intermittent chest tightness or wheezing which should continue to improve with prednisone taper, nebulizers and antibiotics. Continue doxycycline to complete a 5-7 day course. Taper oxygen as tolerated. Continue with flutter valve and incentive spirometry. Encourage out of bed to chair. Continue PPI for GERD. Give a trial of Tessalon Perles for cough. Continue with Lovenox for DVT prophylaxis. Obtain a two-step prior to discharge. Please contact me if you've any further questions or concerns Data Medications: Current Inpatient Medications Medications (Trade) Dose Ordered Sig/Hari Route Start Time Stop Time Status Last Admin Dose Admin Enoxaparin Sodium (Lovenox Inj) 40 mg DAILY SC 03/21/17 09:00 04/20/17 08:59 03/23/17 08:52 40 MG Acetaminophen (Tylenol Tab) 650 mg Q6H PRN PO 03/20/17 15:00 04/19/17 14:59 03/23/17 13:46 650 MG Polyethylene (Miralax Powder Packet) 17 gm DAILY PRN PO 03/20/17 15:00 04/19/17 14:59 Promethazine HCl 12.5 mg/Sodium Chloride 50.5 ml @ 204 mls/hr Q6H PRN IV 03/20/17 16:00 04/19/17 15:59 Prednisone (PredniSONE TAB) 40 mg DAILY PO 03/20/17 21:00 04/19/17 20:59 03/23/17 08:49 40 MG Doxycycline Hyclate (Vibramycin Cap) 100 mg BID PO 03/20/17 18:00 03/27/17 17:59 03/23/17 08:48 100 MG Acyclovir (Zovirax Tab) 400 mg BID PO 03/20/17 21:00 04/19/17 20:59 03/23/17 08:50 400 MG Allopurinol (Zyloprim Tab) 300 mg DAILY PO 03/21/17 09:00 04/20/17 08:59 03/23/17 08:50 300 MG Aspirin (Ecotrin Tab) 81 mg QAM PO 03/21/17 09:00 04/20/17 08:59 03/23/17 08:50 81 MG Escitalopram Oxalate (Lexapro Tab) 20 mg DAILY PO 03/21/17 09:00 04/20/17 08:59 03/23/17 08:48 20 MG Fluticasone Propionate (Flovent Hfa 110MCG Inhaler) 1 puffs DAILY INH 03/21/17 09:00 04/20/17 08:59 03/23/17 08:49 1 PUFFS Isosorbide Mononitrate (Imdur Ext Rel Tab) 30 mg QAM PO 03/21/17 09:00 04/20/17 08:59 03/23/17 08:48 30 MG Lorazepam (Ativan Tab) 0.5 mg TID PRN PO 03/20/17 16:15 04/19/17 16:14 03/22/17 21:46 0.5 MG Losartan Potassium (coZAAR TAB) 25 mg DAILY PO 03/21/17 09:00 04/20/17 08:59 03/23/17 08:49 25 MG Metoclopramide HCl (Reglan Tab) 10 mg BIDM PO 03/20/17 17:00 04/19/17 16:59 03/23/17 17:42 10 MG Polysaccharide Iron Complex (Niferex-150 w/ Vit C Cap) 150 mg DAILY PO 03/21/17 09:00 04/20/17 08:59 03/23/17 08:50 150 MG Rosuvastatin Calcium (Crestor Tab) 20 mg DAILY PO 03/21/17 09:00 04/20/17 08:59 03/23/17 08:50 20 MG Sucralfate (Carafate Susp) 1 gm BID PO 03/20/17 21:00 04/19/17 20:59 03/23/17 08:51 1 GM Tramadol HCl (Ultram Tab) 50 mg Q6H PRN PO 03/20/17 16:15 04/19/17 16:14 Bisoprolol Fumarate (Bisoprolol Fumarate) 5 mg DAILY PO 03/21/17 09:00 04/20/17 08:59 03/23/17 08:51 5 MG Pantoprazole Sodium (Protonix Tab) 40 mg QAM PO 03/21/17 09:00 04/20/17 08:59 03/23/17 08:49 40 MG Miscellaneous Information (Order Awaiting Action) 1 ea QS N/A 03/21/17 00:00 04/20/17 00:00 Amitriptyline HCl (Elavil Tab) 100 mg DAILY@2100 PO 03/20/17 21:00 04/19/17 20:59 03/22/17 20:36 100 MG Heparin Sodium (Porcine) (Heparin 100 Unit/ml 5ml Flush) 5 ml PRN PRN IV 03/21/17 01:45 04/20/17 01:44 03/21/17 16:55 5 ML Ipratropium [place] (Atrovent 0.02% 0.5MG/2.5ML Neb) 0.5 mg Q6R INH 03/21/17 15:00 04/20/17 14:59 03/23/17 14:46 0.5 MG Levalbuterol (Xopenex 1.25MG/ 0.5ML Neb) 1.25 mg Q6R INH 03/21/17 15:00 04/20/17 14:59 03/23/17 14:46 1.25 MG I & O: 24-Hour Column 03/24/17 08:00 Output Total 0 ml Balance 0 ml Vital Signs: Date Time Temp Pulse Resp B/P (MAP) Pulse Ox O2 Delivery O2 Flow Rate FiO2 03/23/17 16:00 93 Nasal Cannula 3.0 03/23/17 15:18 36.9 98 20 105/71 (82) 92 Room Air 03/23/17 14:46 96 14 98 Nasal Cannula 2.0 03/23/17 12:00 Room Air 03/23/17 11:54 36.8 96 18 96/57 (70) 92 Room Air 03/23/17 08:00 Room Air 03/23/17 08:00 36.7 93 18 114/71 (85) 97 Room Air 03/23/17 07:55 99 14 93 Room Air 03/23/17 04:00 Room Air 03/23/17 04:00 36.6 102 16 106/63 (77) 93 Room Air 03/23/17 00:00 Room Air 03/22/17 23:57 36.7 86 18 99/58 (72) 93 Room Air 03/22/17 20:00 Room Air 03/22/17 19:36 105 14 93 Room Air 03/22/17 18:57 36.6 101 20 101/64 (76) 94 Room Air Laboratory Results: Last 24 Hours Test 03/23/17 12:45 Hepatitis C Antibody Screen NEG
[2017-03-23] MEDS: BENZONATATE 100MG CAP PO SCH (20:45)
[2017-03-23] MEDS: AMITRIPTYLINE HCL 100 MG TAB PO SCH (20:45)
[2017-03-23] MEDS: LORAZEPAM 0.5 MG TAB PO PRN (20:49)
[2017-03-24] VITALS (14 sets, daily range): BP systolic 80–130; BP diastolic 44–81; PULSE 68–100; TEMP 36.4–36.7; O2SAT 90–99
[2017-03-24] MEDS: LEVALBUTEROL 1.25MG/0.5ML NEB INH SCH ×3 (07:25→19:42)
[2017-03-24] MEDS: IPRATROPIUM BROMIDE NEB SOLN 0.02% 2.5 ML VIAL INH SCH ×3 (07:25→19:42)
[2017-03-24] MEDS: ISOSORBIDE MONONITRATE 30 MG TABCR PO SCH (07:56)
[2017-03-24] MEDS: PANTOprazole SOD 40 MG TAB PO SCH (07:56)
[2017-03-24] MEDS: ROSUVASTATIN CALCIUM 20 MG TAB PO SCH (07:56)
[2017-03-24] MEDS: LOSARTAN POTASSIUM 25 MG TAB PO SCH (07:56)
[2017-03-24] MEDS: ESCITALOPRAM OXALATE 20 MG TAB PO SCH (07:56)
[2017-03-24] MEDS: BENZONATATE 100MG CAP PO SCH ×4 (07:57→20:29)
[2017-03-24] MEDS: DOXYCYCLINE HYCLATE 100 MG CAP PO SCH ×2 (07:57→20:29)
[2017-03-24] MEDS: ALLOPURINOL 300 MG TAB PO SCH (07:57)
[2017-03-24] MEDS: ACYCLOVIR 400 MG TAB PO SCH ×2 (07:57→20:29)
[2017-03-24] MEDS: ASPIRIN 81 MG ECTAB PO SCH (07:57)
[2017-03-24] MEDS: IRON COMPLEX POLYSACCHARIDE W/VIT C 150 MG CAP PO SCH (07:57)
[2017-03-24] MEDS: SUCRALFATE 1 GM/10 ML UDC PO SCH ×2 (07:58→20:30)
[2017-03-24] MEDS: ENOXAPARIN 40 MG/0.4 ML SYR SC SCH (07:58)
[2017-03-24] MEDS: FLUTICASONE HFA 110MCG INHALER INH SCH (07:59)
[2017-03-24] MEDS: BISOPROLOL FUMARATE 5 MG TAB PO SCH (07:59)
[2017-03-24] MEDS: METOCLOPRAMIDE HCL 10 MG TAB PO SCH ×2 (07:59→17:09)
[2017-03-24] MEDS ORDERED: NURSING VERBAL MED ORDER ONE (11:45)
[2017-03-24] MEDS ORDERED: SODIUM CHLORIDE 0.9% 1000ML 1,000 ML IV ONE (12:00)
[2017-03-24] MEDS ORDERED: CONSULT PHARMACY STA (12:11)
[2017-03-24 12:33] LABS: BASO % 0.2 %; BASO ABS # 0.01 K/uL (0-0.2); EOS % 0.2 %; EOS ABS # 0.01 K/uL (0-0.5); HEMOGLOBIN 11.2 g/dL (14.0-18.0); IG# 0.05 K/uL (0.00-0.02); LYMPH % 4.7 %; MEAN CELL VOLUME 99.7 fL (80-100); MEAN CORPUSCULAR HEMOGLOBIN 32.8 pg (25-34); MEAN CORPUSCULAR HGB CONC 32.9 g/dl (32-36); MEAN PLATELET VOLUME 9.2 fL (7.4-10.4); MONO % 2.2 %; MONO ABS # 0.14 K/uL (0.11-0.59); NEUT % 91.9 %; NEUT ABS # 5.92 K/uL (1.4-6.5); NUCLEATED RED BLOOD CELL ABS 0.03 K/uL (0-0); PLATELET COUNT 105 K/uL (130-400); RED CELL DISTRIBUTION WIDTH CV 16.7 % (11.5-14.5); RED CELL DISTRIBUTION WIDTH SD 60.2 fL (36.4-46.3); WHITE BLOOD COUNT 6.43 K/uL (4.8-10.8)
[2017-03-24] MEDS: ACETAMINOPHEN 325 MG TAB PO PRN (12:36)
--- NOTE | 2017-03-24 12:38 | DIAGNOSTIC IMAGING REPORT ---
SINGLE VIEW CHEST CLINICAL HISTORY: Pneumonia. FINDINGS: An AP, portable, upright chest radiograph is compared to study dated 03/20/2017 and correlated with chest CT dated 01/16/2017. The examination is degraded by portable technique and patient rotation. A left subclavian central venous infusion port is unchanged in position. The cardiomediastinal silhouette is unremarkable. There is atherosclerotic calcification of the thoracic aorta. Emphysema and chronic interstitial thickening are similar to previous. Foci of linear atelectasis versus scarring are noted in the left lower lobe. No airspace consolidation is seen typical for pneumonia and there is no large pleural effusion. No pneumothorax is seen. The bony thorax is grossly intact. IMPRESSION: Emphysema with no acute cardiopulmonary abnormality. Electronically signed by: Yosi Mejia M.D. 03/24/2017 12:36 PM Dictated Date/Time: 03/24/2017 12:35 PM
[2017-03-24] MEDS: SODIUM CHLORIDE 0.9% 1000ML 1,000 ML IV SCH (12:39)
[2017-03-24] MEDS ORDERED: PIPERACILL/TAZOBAC CONSULT ACTIVE PRN (12:45)
[2017-03-24] MEDS ORDERED: PIPERACILL/TAZOBAC IV 3.375 GM in DEXTROSE 5% 100ML IV ONE (13:00)
[2017-03-24 13:16] LABS: CALCIUM 8.6 mg/dl (8.5-10.1); CREATININE 0.95 mg/dl (0.60-1.40); POTASSIUM 3.7 mmol/L (3.5-5.1)
[2017-03-24] MEDS: PIPERACILL/TAZOBAC IV 3.375 GM in DEXTROSE 5% 100ML IV SCH (18:01)
[2017-03-24] MEDS: TRAMADOL HCL 50 MG TAB PO PRN (19:14)
--- NOTE | 2017-03-24 19:14 | Pulmonology Progress Note ---
Pulmonary Progress Note Date of Service Mar 24, 2017. Attending Dr. Mishra Subjective Patient seen and examined this evening. He states that he is feeling better. He still has productive cough. He described greenish brownish sputum. Objective VS reviewed. MAXIMUM TEMPERATURE 36.7, blood pressure 80/44 to 130/81, pulse 68 -100, respiratory rate 14-18, pulse oximetry 90-99% on 2 L nasal cannula. CVS: S1, S2, RRR Lungs: good air entry bilaterally, no wheezes appreciated. Mild crackles at bases. Abd: soft/NT/ND/BS+ Ext: no edema bilaterally Labs reviewed. No new labs for today. Bronchial washings R and L upper lobe-- no AFB, moderate normal musa, yeast- not ajay albicans. Bronchial wash cytology--few benign squamous and bronchial epithelial cells, mucus, few pulmonary macrophages and few neutrophils, no malignant cells seen. Imaging reviewed and viewed by me. SINGLE VIEW CHEST CLINICAL HISTORY: Pneumonia. FINDINGS: An AP, portable, upright chest radiograph is compared to study dated 03/20/2017 and correlated with chest CT dated 01/16/2017. The examination is degraded by portable technique and patient rotation. A left subclavian central venous infusion port is unchanged in position. The cardiomediastinal silhouette is unremarkable. There is atherosclerotic calcification of the thoracic aorta. Emphysema and chronic interstitial thickening are similar to previous. Foci of linear atelectasis versus scarring are noted in the left lower lobe. No airspace consolidation is seen typical for pneumonia and there is no large pleural effusion. No pneumothorax is seen. The bony thorax is grossly intact. IMPRESSION: Emphysema with no acute cardiopulmonary abnormality. Medications reviewed. Respiratory medications include: Atrovent and Xopenex nebulizer every 6 hours, Lovenox 40 mg daily subcutaneous, Flovent HFA 1 puff daily, prednisone 40 mg daily, doxycycline 100 mg twice a day by mouth discontinued today. Patient started on Zosyn Assessment & Plan COPD with exacerbation Bronchitis Recommendations Patient appears to be improving from a respiratory standpoint. He appears to be in no acute respiratory distress. He is speaking well in full sentences and ambulating today with minimal dyspnea. He still does have some mild intermittent chest tightness or wheezing which should continue to improve with prednisone taper, nebulizers and antibiotics. Continue doxycycline to complete a 5-7 day course. Taper oxygen as tolerated. Continue with flutter valve and incentive spirometry. Encourage out of bed to chair. Continue PPI for GERD. Give a trial of Tessalon Perles for cough. Continue with Lovenox for DVT prophylaxis. Obtain a two-step prior to discharge. I will sign off case today. Please contact me if you've any further questions or concerns. Data Medications: Current Inpatient Medications Medications (Trade) Dose Ordered Sig/Hari Route Start Time Stop Time Status Last Admin Dose Admin Enoxaparin Sodium (Lovenox Inj) 40 mg DAILY SC 03/21/17 09:00 04/20/17 08:59 03/24/17 07:58 40 MG Acetaminophen (Tylenol Tab) 650 mg Q6H PRN PO 03/20/17 15:00 04/19/17 14:59 03/24/17 12:36 650 MG Polyethylene (Miralax Powder Packet) 17 gm DAILY PRN PO 03/20/17 15:00 04/19/17 14:59 Promethazine HCl 12.5 mg/Sodium Chloride 50.5 ml @ 204 mls/hr Q6H PRN IV 03/20/17 16:00 04/19/17 15:59 Prednisone (PredniSONE TAB) 40 mg DAILY PO 03/20/17 21:00 04/19/17 20:59 03/24/17 07:56 40 MG Doxycycline Hyclate (Vibramycin Cap) 100 mg BID PO 03/20/17 18:00 03/27/17 17:59 03/24/17 07:57 100 MG Acyclovir (Zovirax Tab) 400 mg BID PO 03/20/17 21:00 04/19/17 20:59 03/24/17 07:57 400 MG Allopurinol (Zyloprim Tab) 300 mg DAILY PO 03/21/17 09:00 04/20/17 08:59 03/24/17 07:57 300 MG Aspirin (Ecotrin Tab) 81 mg QAM PO 03/21/17 09:00 04/20/17 08:59 03/24/17 07:57 81 MG Escitalopram Oxalate (Lexapro Tab) 20 mg DAILY PO 03/21/17 09:00 04/20/17 08:59 03/24/17 07:56 20 MG Fluticasone Propionate (Flovent Hfa 110MCG Inhaler) 1 puffs DAILY INH 03/21/17 09:00 04/20/17 08:59 03/24/17 07:59 1 PUFFS Lorazepam (Ativan Tab) 0.5 mg TID PRN PO 03/20/17 16:15 04/19/17 16:14 03/23/17 20:49 0.5 MG Metoclopramide HCl (Reglan Tab) 10 mg BIDM PO 03/20/17 17:00 04/19/17 16:59 03/24/17 17:09 10 MG Polysaccharide Iron Complex (Niferex-150 w/ Vit C Cap) 150 mg DAILY PO 03/21/17 09:00 04/20/17 08:59 03/24/17 07:57 150 MG Rosuvastatin Calcium (Crestor Tab) 20 mg DAILY PO 03/21/17 09:00 04/20/17 08:59 03/24/17 07:56 20 MG Sucralfate (Carafate Susp) 1 gm BID PO 03/20/17 21:00 04/19/17 20:59 03/24/17 07:58 1 GM Tramadol HCl (Ultram Tab) 50 mg Q6H PRN PO 03/20/17 16:15 04/19/17 16:14 Bisoprolol Fumarate (Bisoprolol Fumarate) 5 mg DAILY PO 03/21/17 09:00 04/20/17 08:59 03/24/17 07:59 5 MG Pantoprazole Sodium (Protonix Tab) 40 mg QAM PO 03/21/17 09:00 04/20/17 08:59 03/24/17 07:56 40 MG Miscellaneous Information (Order Awaiting Action) 1 ea QS N/A 03/21/17 00:00 04/20/17 00:00 Amitriptyline HCl (Elavil Tab) 100 mg DAILY@2100 PO 03/20/17 21:00 04/19/17 20:59 03/23/17 20:45 100 MG Heparin Sodium (Porcine) (Heparin 100 Unit/ml 5ml Flush) 5 ml PRN PRN IV 03/21/17 01:45 04/20/17 01:44 03/24/17 11:35 5 ML Ipratropium [place] (Atrovent 0.02% 0.5MG/2.5ML Neb) 0.5 mg Q6R INH 03/21/17 15:00 04/20/17 14:59 03/24/17 14:48 0.5 MG Levalbuterol (Xopenex 1.25MG/ 0.5ML Neb) 1.25 mg Q6R INH 03/21/17 15:00 04/20/17 14:59 03/24/17 14:48 1.25 MG Benzonatate (Tessalon Perles Cap) 100 mg TID PO 03/23/17 21:00 04/22/17 20:59 03/24/17 13:29 100 MG Sodium Chloride 1,000 ml @ 125 mls/hr Q8H IV 03/24/17 12:00 04/23/17 11:59 03/24/17 12:39 125 MLS/HR Piperacillin Sod/ Tazobactam Sod (Consult) 1 ea UD PRN N/A 03/24/17 12:45 04/23/17 12:44 Piperacillin Sod/ Tazobactam Sod 3.375 gm/Dextrose 115 ml @ 28.75 mls/ hr Q8H IV 03/24/17 18:00 03/31/17 12:59 03/24/17 18:01 28.75 MLS/HR I & O: 24-Hour Column 03/25/17 08:00 Intake Total 1572 ml Output Total 0 ml Balance 1572 ml Vital Signs: Date Time Temp Pulse Resp B/P (MAP) Pulse Ox O2 Delivery O2 Flow Rate FiO2 03/24/17 16:00 95 Nasal Cannula 2.0 03/24/17 15:19 36.7 90 16 107/65 (79) 90 Room Air 03/24/17 14:49 100 14 92 Room Air 03/24/17 13:35 95 Nasal Cannula 2.0 03/24/17 12:44 36.4 79 18 109/66 (80) 95 Nasal Cannula 2.0 03/24/17 12:00 Nasal Cannula 2.0 03/24/17 11:40 36.7 94 16 80/44 (56) 91 Room Air 03/24/17 08:00 Room Air 03/24/17 07:51 36.7 92 18 130/81 (97) 92 03/24/17 07:25 68 16 99 Nasal Cannula 2.0 03/24/17 04:18 36.6 87 16 102/66 (78) 95 03/24/17 04:00 93 Room Air 03/24/17 00:00 93 Room Air 03/23/17 23:55 36.3 99 18 135/77 (96) 94 Room Air 03/23/17 20:09 94 Room Air 03/23/17 20:02 93 Nasal Cannula 3.0 03/23/17 19:52 101 16 93 Room Air 03/23/17 19:35 36.3 80 20 126/75 (92) 97 Nasal Cannula 2.5 Laboratory Results: Last 24 Hours Test 03/24/17 12:02 White Blood Count 6.43 K/uL Red Blood Count 3.41 M/uL Hemoglobin 11.2 g/dL Hematocrit 34.0 % Mean Corpuscular Volume 99.7 fL Mean Corpuscular Hemoglobin 32.8 pg Mean Corpuscular Hemoglobin Concent 32.9 g/dl Platelet Count 105 K/uL Mean Platelet Volume 9.2 fL Neutrophils (%) (Auto) 91.9 % Lymphocytes (%) (Auto) 4.7 % Monocytes (%) (Auto) 2.2 % Eosinophils (%) (Auto) 0.2 % Basophils (%) (Auto) 0.2 % Neutrophils # (Auto) 5.92 K/uL Lymphocytes # (Auto) 0.30 K/uL Monocytes # (Auto) 0.14 K/uL Eosinophils # (Auto) 0.01 K/uL Basophils # (Auto) 0.01 K/uL RDW Standard Deviation 60.2 fL RDW Coefficient of Variation 16.7 % Immature Granulocyte % (Auto) 0.8 % Immature Granulocyte # (Auto) 0.05 K/uL Nucleated RBC Absolute Count (auto) 0.03 K/uL Nucleated Red Blood Cells % 0.4 % Sodium Level 136 mmol/L Potassium Level 3.7 mmol/L Chloride Level 104 mmol/L Carbon Dioxide Level 29 mmol/L Anion Gap 3.0 mmol/L Blood Urea Nitrogen 24 mg/dl Creatinine 0.95 mg/dl Est Creatinine Clear Calc Drug Dose 72.0 ml/min Estimated GFR () 99.0 Estimated GFR (Non- 85.4 BUN/Creatinine Ratio 25.2 Random Glucose 123 mg/dl Calcium Level 8.6 mg/dl
[2017-03-24] MEDS: LORAZEPAM 0.5 MG TAB PO PRN (20:29)
[2017-03-24] MEDS: AMITRIPTYLINE HCL 100 MG TAB PO SCH (20:31)
--- NOTE | 2017-03-24 20:55 | Progress Note ---
Medicine Progress Note Date & Time of Visit: Mar 24, 2017 at 20:47. Subjective noted to be hypotensive today associated with dizziness improved with fluid challenge reports increased sputum production - thick, green dyspnea improving denies other symptoms Objective Last 8 Hrs Date Time Temp Pulse Resp B/P (MAP) Pulse Ox O2 Delivery O2 Flow Rate FiO2 03/24/17 20:10 95 Nasal Cannula 2.0 03/24/17 19:54 36.5 88 18 123/72 (89) 92 Room Air 03/24/17 19:44 74 16 95 Room Air 03/24/17 16:00 95 Nasal Cannula 2.0 03/24/17 15:19 36.7 90 16 107/65 (79) 90 Room Air 03/24/17 14:49 100 14 92 Room Air 03/24/17 13:35 95 Nasal Cannula 2.0 Physical Exam: General- oriented x 3, not in distress Neck- no JVD Lungs- faint wheeze bilaterally, (+) crackles on bilateral bases Heart- regular rhythm; no murmur, normal rate Abdomen- normal bowel sounds, soft, nontender Extremities- no pretibial edema, no calf tenderness Neuro- alert, oriented x 3; no gross focal deficits Skin- warm & dry Laboratory Results: Last 24 Hours Test 03/24/17 12:02 White Blood Count 6.43 K/uL Red Blood Count 3.41 M/uL Hemoglobin 11.2 g/dL Hematocrit 34.0 % Mean Corpuscular Volume 99.7 fL Mean Corpuscular Hemoglobin 32.8 pg Mean Corpuscular Hemoglobin Concent 32.9 g/dl Platelet Count 105 K/uL Mean Platelet Volume 9.2 fL Neutrophils (%) (Auto) 91.9 % Lymphocytes (%) (Auto) 4.7 % Monocytes (%) (Auto) 2.2 % Eosinophils (%) (Auto) 0.2 % Basophils (%) (Auto) 0.2 % Neutrophils # (Auto) 5.92 K/uL Lymphocytes # (Auto) 0.30 K/uL Monocytes # (Auto) 0.14 K/uL Eosinophils # (Auto) 0.01 K/uL Basophils # (Auto) 0.01 K/uL RDW Standard Deviation 60.2 fL RDW Coefficient of Variation 16.7 % Immature Granulocyte % (Auto) 0.8 % Immature Granulocyte # (Auto) 0.05 K/uL Nucleated RBC Absolute Count (auto) 0.03 K/uL Nucleated Red Blood Cells % 0.4 % Sodium Level 136 mmol/L Potassium Level 3.7 mmol/L Chloride Level 104 mmol/L Carbon Dioxide Level 29 mmol/L Anion Gap 3.0 mmol/L Blood Urea Nitrogen 24 mg/dl Creatinine 0.95 mg/dl Est Creatinine Clear Calc Drug Dose 72.0 ml/min Estimated GFR () 99.0 Estimated GFR (Non- 85.4 BUN/Creatinine Ratio 25.2 Random Glucose 123 mg/dl Calcium Level 8.6 mg/dl Assessment & Plan ACUTE HYPOXIC RESPIRATORY FAILURE s/p BRONCHOSCOPY POSSIBLE COPD/ASTHMA EXACERBATION - CXR: no acute infiltrates - Bronch Washing studies: negative so far - on Prednisone, Doxycycline, Nebs - (+) wheezing, increased sputum repeat CXR: unchanged - Zosyn added to Doxycycline will continue to monitor - discussed with Dr. Mishra HYPOTENSION - no other signs of sepsis - hold ISMN, Lisinopril - IV fluids - monitor PROLONGED QTC - 502--> 479 - avoid QTC prolonging agents CAD - EKG without acute ST changes enzymes negative - continue ASA, beta keenan, nitrate, and statin ANXIETY, DEPRESSION - continue home meds HX MANTLE CELL LYMPHOMA - in remission DVT PROPHYLAXIS - SQ Lovenox DISPO pending anticipate d/c home when medically stable Current Inpatient Medications: Current Inpatient Medications Medications (Trade) Dose Ordered Sig/Hari Route Start Time Stop Time Status Last Admin Dose Admin Enoxaparin Sodium (Lovenox Inj) 40 mg DAILY SC 03/21/17 09:00 04/20/17 08:59 03/24/17 07:58 40 MG Acetaminophen (Tylenol Tab) 650 mg Q6H PRN PO 03/20/17 15:00 04/19/17 14:59 03/24/17 12:36 650 MG Polyethylene (Miralax Powder Packet) 17 gm DAILY PRN PO 03/20/17 15:00 04/19/17 14:59 Promethazine HCl 12.5 mg/Sodium Chloride 50.5 ml @ 204 mls/hr Q6H PRN IV 03/20/17 16:00 04/19/17 15:59 Prednisone (PredniSONE TAB) 40 mg DAILY PO 03/20/17 21:00 04/19/17 20:59 03/24/17 07:56 40 MG Doxycycline Hyclate (Vibramycin Cap) 100 mg BID PO 03/20/17 18:00 03/27/17 17:59 03/24/17 20:29 100 MG Acyclovir (Zovirax Tab) 400 mg BID PO 03/20/17 21:00 04/19/17 20:59 03/24/17 20:29 400 MG Allopurinol (Zyloprim Tab) 300 mg DAILY PO 03/21/17 09:00 04/20/17 08:59 03/24/17 07:57 300 MG Aspirin (Ecotrin Tab) 81 mg QAM PO 03/21/17 09:00 04/20/17 08:59 03/24/17 07:57 81 MG Escitalopram Oxalate (Lexapro Tab) 20 mg DAILY PO 03/21/17 09:00 04/20/17 08:59 03/24/17 07:56 20 MG Fluticasone Propionate (Flovent Hfa 110MCG Inhaler) 1 puffs DAILY INH 03/21/17 09:00 04/20/17 08:59 03/24/17 07:59 1 PUFFS Lorazepam (Ativan Tab) 0.5 mg TID PRN PO 03/20/17 16:15 04/19/17 16:14 03/24/17 20:29 0.5 MG Metoclopramide HCl (Reglan Tab) 10 mg BIDM PO 03/20/17 17:00 04/19/17 16:59 03/24/17 17:09 10 MG Polysaccharide Iron Complex (Niferex-150 w/ Vit C Cap) 150 mg DAILY PO 03/21/17 09:00 04/20/17 08:59 03/24/17 07:57 150 MG Rosuvastatin Calcium (Crestor Tab) 20 mg DAILY PO 03/21/17 09:00 04/20/17 08:59 03/24/17 07:56 20 MG Sucralfate (Carafate Susp) 1 gm BID PO 03/20/17 21:00 04/19/17 20:59 03/24/17 20:30 1 GM Tramadol HCl (Ultram Tab) 50 mg Q6H PRN PO 03/20/17 16:15 04/19/17 16:14 03/24/17 19:14 50 MG Bisoprolol Fumarate (Bisoprolol Fumarate) 5 mg DAILY PO 03/21/17 09:00 04/20/17 08:59 03/24/17 07:59 5 MG Pantoprazole Sodium (Protonix Tab) 40 mg QAM PO 03/21/17 09:00 04/20/17 08:59 03/24/17 07:56 40 MG Miscellaneous Information (Order Awaiting Action) 1 ea QS N/A 03/21/17 00:00 04/20/17 00:00 Amitriptyline HCl (Elavil Tab) 100 mg DAILY@2100 PO 03/20/17 21:00 04/19/17 20:59 03/24/17 20:31 100 MG Heparin Sodium (Porcine) (Heparin 100 Unit/ml 5ml Flush) 5 ml PRN PRN IV 03/21/17 01:45 04/20/17 01:44 03/24/17 11:35 5 ML Ipratropium [place] (Atrovent 0.02% 0.5MG/2.5ML Neb) 0.5 mg Q6R INH 03/21/17 15:00 04/20/17 14:59 03/24/17 19:42 0.5 MG Levalbuterol (Xopenex 1.25MG/ 0.5ML Neb) 1.25 mg Q6R INH 03/21/17 15:00 04/20/17 14:59 03/24/17 19:42 1.25 MG Benzonatate (Tessalon Perles Cap) 100 mg TID PO 03/23/17 21:00 04/22/17 20:59 03/24/17 20:29 100 MG Sodium Chloride 1,000 ml @ 125 mls/hr Q8H IV 03/24/17 12:00 04/23/17 11:59 03/24/17 12:39 125 MLS/HR Piperacillin Sod/ Tazobactam Sod (Consult) 1 ea UD PRN N/A 03/24/17 12:45 04/23/17 12:44 Piperacillin Sod/ Tazobactam Sod 3.375 gm/Dextrose 115 ml @ 28.75 mls/ hr Q8H IV 03/24/17 18:00 03/31/17 12:59 03/24/17 18:01 28.75 MLS/HR
[2017-03-25] VITALS (11 sets, daily range): BP systolic 123–155; BP diastolic 73–89; PULSE 84–105; TEMP 36.5–37; O2SAT 92–99
[2017-03-25] MEDS: SODIUM CHLORIDE 0.9% 1000ML 1,000 ML IV SCH ×2 (00:24→08:06)
[2017-03-25] MEDS: LEVALBUTEROL 1.25MG/0.5ML NEB INH SCH ×4 (01:56→19:32)
[2017-03-25] MEDS: IPRATROPIUM BROMIDE NEB SOLN 0.02% 2.5 ML VIAL INH SCH ×4 (01:56→19:32)
[2017-03-25] MEDS: PIPERACILL/TAZOBAC IV 3.375 GM in DEXTROSE 5% 100ML IV SCH ×2 (02:18→10:30)
[2017-03-25] MEDS: METOCLOPRAMIDE HCL 10 MG TAB PO SCH ×2 (08:06→19:35)
[2017-03-25] MEDS: ROSUVASTATIN CALCIUM 20 MG TAB PO SCH (08:06)
[2017-03-25] MEDS: PANTOprazole SOD 40 MG TAB PO SCH (08:07)
[2017-03-25] MEDS: IRON COMPLEX POLYSACCHARIDE W/VIT C 150 MG CAP PO SCH (08:07)
[2017-03-25] MEDS: SUCRALFATE 1 GM/10 ML UDC PO SCH ×2 (08:07→20:36)
[2017-03-25] MEDS: ACYCLOVIR 400 MG TAB PO SCH ×2 (08:08→20:36)
[2017-03-25] MEDS: BISOPROLOL FUMARATE 5 MG TAB PO SCH (08:08)
[2017-03-25] MEDS: ALLOPURINOL 300 MG TAB PO SCH (08:08)
[2017-03-25] MEDS: FLUTICASONE HFA 110MCG INHALER INH SCH (08:08)
[2017-03-25] MEDS: ASPIRIN 81 MG ECTAB PO SCH (08:08)
[2017-03-25] MEDS: ESCITALOPRAM OXALATE 20 MG TAB PO SCH (08:09)
[2017-03-25] MEDS: BENZONATATE 100MG CAP PO SCH ×3 (08:09→20:37)
[2017-03-25] MEDS: DOXYCYCLINE HYCLATE 100 MG CAP PO SCH ×2 (08:09→20:36)
[2017-03-25] MEDS: ENOXAPARIN 40 MG/0.4 ML SYR SC SCH (08:10)
--- NOTE | 2017-03-25 11:55 | Progress Note ---
Medicine Progress Note Date & Time of Visit: Mar 25, 2017 at 11:48. Subjective seen resting in bed, comfortable states he feels improved today compared to yesterday dizziness has resolved chest congestion also improved today, less sputum, no dyspnea no other symptoms Objective Last 8 Hrs Date Time Temp Pulse Resp B/P (MAP) Pulse Ox O2 Delivery O2 Flow Rate FiO2 03/25/17 08:00 Nasal Cannula 2.0 03/25/17 07:30 36.5 94 18 124/76 (92) 92 Nasal Cannula 2.0 03/25/17 07:23 105 14 93 Room Air 03/25/17 04:00 Room Air Physical Exam: General- oriented x 3, not in distress Neck- no JVD Lungs- (+) mild occasional rhonchi at the right base, no wheezing Heart- regular rhythm; no murmur, normal rate Abdomen- normal bowel sounds, soft, nontender Extremities- no pretibial edema, no calf tenderness Neuro- alert, oriented x 3; no gross focal deficits Skin- warm & dry Laboratory Results: Last 24 Hours Test 03/24/17 12:02 White Blood Count 6.43 K/uL Red Blood Count 3.41 M/uL Hemoglobin 11.2 g/dL Hematocrit 34.0 % Mean Corpuscular Volume 99.7 fL Mean Corpuscular Hemoglobin 32.8 pg Mean Corpuscular Hemoglobin Concent 32.9 g/dl Platelet Count 105 K/uL Mean Platelet Volume 9.2 fL Neutrophils (%) (Auto) 91.9 % Lymphocytes (%) (Auto) 4.7 % Monocytes (%) (Auto) 2.2 % Eosinophils (%) (Auto) 0.2 % Basophils (%) (Auto) 0.2 % Neutrophils # (Auto) 5.92 K/uL Lymphocytes # (Auto) 0.30 K/uL Monocytes # (Auto) 0.14 K/uL Eosinophils # (Auto) 0.01 K/uL Basophils # (Auto) 0.01 K/uL RDW Standard Deviation 60.2 fL RDW Coefficient of Variation 16.7 % Immature Granulocyte % (Auto) 0.8 % Immature Granulocyte # (Auto) 0.05 K/uL Nucleated RBC Absolute Count (auto) 0.03 K/uL Nucleated Red Blood Cells % 0.4 % Sodium Level 136 mmol/L Potassium Level 3.7 mmol/L Chloride Level 104 mmol/L Carbon Dioxide Level 29 mmol/L Anion Gap 3.0 mmol/L Blood Urea Nitrogen 24 mg/dl Creatinine 0.95 mg/dl Est Creatinine Clear Calc Drug Dose 72.0 ml/min Estimated GFR () 99.0 Estimated GFR (Non- 85.4 BUN/Creatinine Ratio 25.2 Random Glucose 123 mg/dl Calcium Level 8.6 mg/dl Assessment & Plan ACUTE HYPOXIC RESPIRATORY FAILURE s/p BRONCHOSCOPY POSSIBLE COPD/ASTHMA EXACERBATION - CXR: no acute infiltrates - Bronch Washing studies: negative so far repeat CXR: unchanged - Zosyn added, change to Augmenti today continue Doxycycline continue Prednisone and Nebs - appreciate Dr. Mishra's recommendations HYPOTENSION - no other signs of sepsis - hold ISMN, Lisinopril - IV fluids given resolved - d/c IV fluids monitor BP PROLONGED QTC - 502--> 479--> 502 - avoid QTC prolonging agents - monitor as outpatient while on Lexapro CAD - EKG without acute ST changes enzymes negative - continue ASA, beta keenan, nitrate, and statin ANXIETY, DEPRESSION - stable - continue home meds HX MANTLE CELL LYMPHOMA - in remission DVT PROPHYLAXIS - SQ Lovenox DISPO anticipate d/c home when medically stable , likely tomorrow will need 2 step exercise test Current Inpatient Medications: Current Inpatient Medications Medications (Trade) Dose Ordered Sig/Hari Route Start Time Stop Time Status Last Admin Dose Admin Enoxaparin Sodium (Lovenox Inj) 40 mg DAILY SC 03/21/17 09:00 04/20/17 08:59 03/25/17 08:10 40 MG Acetaminophen (Tylenol Tab) 650 mg Q6H PRN PO 03/20/17 15:00 04/19/17 14:59 03/24/17 12:36 650 MG Polyethylene (Miralax Powder Packet) 17 gm DAILY PRN PO 03/20/17 15:00 04/19/17 14:59 Promethazine HCl 12.5 mg/Sodium Chloride 50.5 ml @ 204 mls/hr Q6H PRN IV 03/20/17 16:00 04/19/17 15:59 Prednisone (PredniSONE TAB) 40 mg DAILY PO 03/20/17 21:00 04/19/17 20:59 03/25/17 08:07 40 MG Doxycycline Hyclate (Vibramycin Cap) 100 mg BID PO 03/20/17 18:00 03/27/17 17:59 03/25/17 08:09 100 MG Acyclovir (Zovirax Tab) 400 mg BID PO 03/20/17 21:00 04/19/17 20:59 03/25/17 08:08 400 MG Allopurinol (Zyloprim Tab) 300 mg DAILY PO 03/21/17 09:00 04/20/17 08:59 03/25/17 08:08 300 MG Aspirin (Ecotrin Tab) 81 mg QAM PO 03/21/17 09:00 04/20/17 08:59 03/25/17 08:08 81 MG Escitalopram Oxalate (Lexapro Tab) 20 mg DAILY PO 03/21/17 09:00 04/20/17 08:59 03/25/17 08:09 20 MG Fluticasone Propionate (Flovent Hfa 110MCG Inhaler) 1 puffs DAILY INH 03/21/17 09:00 04/20/17 08:59 03/25/17 08:08 1 PUFFS Lorazepam (Ativan Tab) 0.5 mg TID PRN PO 03/20/17 16:15 04/19/17 16:14 03/24/17 20:29 0.5 MG Metoclopramide HCl (Reglan Tab) 10 mg BIDM PO 03/20/17 17:00 04/19/17 16:59 03/25/17 08:06 10 MG Polysaccharide Iron Complex (Niferex-150 w/ Vit C Cap) 150 mg DAILY PO 03/21/17 09:00 04/20/17 08:59 03/25/17 08:07 150 MG Rosuvastatin Calcium (Crestor Tab) 20 mg DAILY PO 03/21/17 09:00 04/20/17 08:59 03/25/17 08:06 20 MG Sucralfate (Carafate Susp) 1 gm BID PO 03/20/17 21:00 04/19/17 20:59 03/25/17 08:07 1 GM Tramadol HCl (Ultram Tab) 50 mg Q6H PRN PO 03/20/17 16:15 04/19/17 16:14 03/24/17 19:14 50 MG Bisoprolol Fumarate (Bisoprolol Fumarate) 5 mg DAILY PO 03/21/17 09:00 04/20/17 08:59 12/6/17 08:08 5 MG Pantoprazole Sodium (Protonix Tab) 40 mg QAM PO 03/21/17 09:00 04/20/17 08:59 03/25/17 08:07 40 MG Miscellaneous Information (Order Awaiting Action) 1 ea QS N/A 03/21/17 00:00 04/20/17 00:00 Amitriptyline HCl (Elavil Tab) 100 mg DAILY@2100 PO 03/20/17 21:00 04/19/17 20:59 03/24/17 20:31 100 MG Heparin Sodium (Porcine) (Heparin 100 Unit/ml 5ml Flush) 5 ml PRN PRN IV 03/21/17 01:45 04/20/17 01:44 03/24/17 11:35 5 ML Ipratropium [place] (Atrovent 0.02% 0.5MG/2.5ML Neb) 0.5 mg Q6R INH 03/21/17 15:00 04/20/17 14:59 03/25/17 07:12 0.5 MG Levalbuterol (Xopenex 1.25MG/ 0.5ML Neb) 1.25 mg Q6R INH 03/21/17 15:00 04/20/17 14:59 03/25/17 07:12 1.25 MG Benzonatate (Tessalon Perles Cap) 100 mg TID PO 03/23/17 21:00 04/22/17 20:59 03/25/17 08:09 100 MG Sodium Chloride 1,000 ml @ 125 mls/hr Q8H IV 03/24/17 12:00 04/23/17 11:59 03/25/17 08:06 125 MLS/HR Piperacillin Sod/ Tazobactam Sod (Consult) 1 ea UD PRN N/A 03/24/17 12:45 04/23/17 12:44 Piperacillin Sod/ Tazobactam Sod 3.375 gm/Dextrose 115 ml @ 28.75 mls/ hr Q8H IV 03/24/17 18:00 03/31/17 12:59 03/25/17 10:30 28.75 MLS/HR
[2017-03-25] MEDS: AMOXICILLIN/CLAVULANATE TAB 875 MG TAB PO SCH (19:35)
[2017-03-25] MEDS: AMITRIPTYLINE HCL 100 MG TAB PO SCH (20:36)
[2017-03-25] MEDS: TRAMADOL HCL 50 MG TAB PO PRN (20:39)
[2017-03-26] VITALS (10 sets, daily range): BP systolic 115–150; BP diastolic 66–89; PULSE 83–96; TEMP 36.4–36.7; O2SAT 91–94
[2017-03-26] MEDS: IPRATROPIUM BROMIDE NEB SOLN 0.02% 2.5 ML VIAL INH SCH ×3 (02:12→13:52)
[2017-03-26] MEDS: LEVALBUTEROL 1.25MG/0.5ML NEB INH SCH ×3 (02:12→13:52)
[2017-03-26] MEDS: IRON COMPLEX POLYSACCHARIDE W/VIT C 150 MG CAP PO SCH (08:34)
[2017-03-26] MEDS: DOXYCYCLINE HYCLATE 100 MG CAP PO SCH (08:34)
[2017-03-26] MEDS: ALLOPURINOL 300 MG TAB PO SCH (08:34)
[2017-03-26] MEDS: PANTOprazole SOD 40 MG TAB PO SCH (08:34)
[2017-03-26] MEDS: ASPIRIN 81 MG ECTAB PO SCH (08:34)
[2017-03-26] MEDS: ACYCLOVIR 400 MG TAB PO SCH (08:34)
[2017-03-26] MEDS: ESCITALOPRAM OXALATE 20 MG TAB PO SCH (08:34)
[2017-03-26] MEDS: BISOPROLOL FUMARATE 5 MG TAB PO SCH (08:35)
[2017-03-26] MEDS: AMOXICILLIN/CLAVULANATE TAB 875 MG TAB PO SCH (08:35)
[2017-03-26] MEDS: BENZONATATE 100MG CAP PO SCH ×2 (08:35→14:05)
[2017-03-26] MEDS: SUCRALFATE 1 GM/10 ML UDC PO SCH (08:36)
[2017-03-26] MEDS: METOCLOPRAMIDE HCL 10 MG TAB PO SCH (08:36)
[2017-03-26] MEDS: ROSUVASTATIN CALCIUM 20 MG TAB PO SCH (08:36)
[2017-03-26] MEDS: FLUTICASONE HFA 110MCG INHALER INH SCH (08:36)
[2017-03-26] MEDS: ENOXAPARIN 40 MG/0.4 ML SYR SC SCH (08:38)
[2017-03-26] MEDS: TRAMADOL HCL 50 MG TAB PO PRN (08:46)
[2017-03-26] MEDS ORDERED: LOSARTAN POTASSIUM 25 MG TAB PO ONE (12:03)
[2017-03-26] MEDS ORDERED: ISOSORBIDE MONONITRATE 30 MG TABCR PO ONE (14:29)
--- NOTE | 2017-03-26 14:38 | Progress Note ---
Medicine Progress Note Date & Time of Visit: Mar 26, 2017 at 14:29. Subjective patient seen resting in bed, comfortable seen standing in the room conversing with his roommate in good spirits states he felt slightly dizzy earlier today, better now breathing is fine, cough resolving, no chest pain denies other symptoms states he is ready for discharge today Objective Last 8 Hrs Date Time Temp Pulse Resp B/P (MAP) Pulse Ox O2 Delivery O2 Flow Rate FiO2 03/26/17 13:55 88 19 94 Room Air 03/26/17 12:49 36.6 94 20 141/82 (101) 94 Room Air 03/26/17 12:00 92 Room Air 03/26/17 11:41 36.5 92 18 132/77 (95) 92 Room Air 03/26/17 08:00 91 Room Air 03/26/17 07:34 36.7 83 18 115/66 (82) 91 Room Air 03/26/17 07:26 89 18 93 Room Air Physical Exam: General- oriented x 3, not in distress Neck- no JVD Lungs- clear breath sounds bilaterally, no rales/wheezes Heart- regular rhythm; no murmur, normal rate Abdomen- normal bowel sounds, soft, nontender Extremities- no pretibial edema, no calf tenderness Neuro- alert, oriented x 3; no gross focal deficits Skin- warm & dry Laboratory Results: Date/Time Source Procedure Growth Status 03/25/17 14:45 Sputum Expectorated Sputum Gram Stain - Final Resulted 03/25/17 14:45 Sputum Expectorated Sputum Sputum Culture Pending Resulted Assessment & Plan ACUTE HYPOXIC RESPIRATORY FAILURE s/p BRONCHOSCOPY POSSIBLE COPD/ASTHMA EXACERBATION - sent for admission by Dr. Collins as patient was having wheezing and hypoxia post bronchoscopy - CXR: no acute infiltrates - Bronch Washing studies: negative so far repeat CXR: unchanged - received Doxycycline x 6 days, Prednisone and Nebs received Zosyn/ Augmentin x 2 days followed by Pulmonary Dr. Mars/ Dr. Mishra - weaned off oxygen, clinically improved 2 step oxygen test done cleared for discharge d/c on: 1 more day of Doxycycline to complete 7 days Prednisone taper starting at 30mg continue usual Breo, Flovent, Albuterol PRN HYPOTENSION - episode of hypotension during admission, syst bp 80s - no other signs of sepsis - held ISMN, Lisinopril, gradually resumed IV fluids given resolved - continue usual Bisoprolol, Lisinopril reduce Imdur to 15mg po daily monitor BP closely as outpatient PROLONGED QTC - 502--> 479--> 502 - avoid QTC prolonging agents - monitor as outpatient while on Lexapro CAD - EKG without acute ST changes enzymes negative - continue ASA, beta keenan, nitrate, and statin ANXIETY, DEPRESSION - stable - continue home meds HX MANTLE CELL LYMPHOMA - in remission DVT PROPHYLAXIS - SQ Lovenox DISPO d/c home ff up: 5am dr. jack montes ff up with Pulmonary Dr. Collins in 1 week Current Inpatient Medications: Current Inpatient Medications Medications (Trade) Dose Ordered Sig/Hari Route Start Time Stop Time Status Last Admin Dose Admin Enoxaparin Sodium (Lovenox Inj) 40 mg DAILY SC 03/21/17 09:00 04/20/17 08:59 03/26/17 08:38 40 MG Acetaminophen (Tylenol Tab) 650 mg Q6H PRN PO 03/20/17 15:00 04/19/17 14:59 03/24/17 12:36 650 MG Polyethylene (Miralax Powder Packet) 17 gm DAILY PRN PO 03/20/17 15:00 04/19/17 14:59 Promethazine HCl 12.5 mg/Sodium Chloride 50.5 ml @ 204 mls/hr Q6H PRN IV 03/20/17 16:00 04/19/17 15:59 Prednisone (PredniSONE TAB) 40 mg DAILY PO 03/20/17 21:00 04/19/17 20:59 03/26/17 08:34 40 MG Doxycycline Hyclate (Vibramycin Cap) 100 mg BID PO 03/20/17 18:00 03/27/17 17:59 03/26/17 08:34 100 MG Acyclovir (Zovirax Tab) 400 mg BID PO 03/20/17 21:00 04/19/17 20:59 03/26/17 08:34 400 MG Allopurinol (Zyloprim Tab) 300 mg DAILY PO 03/21/17 09:00 04/20/17 08:59 03/26/17 08:34 300 MG Aspirin (Ecotrin Tab) 81 mg QAM PO 03/21/17 09:00 04/20/17 08:59 03/26/17 08:34 81 MG Escitalopram Oxalate (Lexapro Tab) 20 mg DAILY PO 03/21/17 09:00 04/20/17 08:59 03/26/17 08:34 20 MG Fluticasone Propionate (Flovent Hfa 110MCG Inhaler) 1 puffs DAILY INH 03/21/17 09:00 04/20/17 08:59 03/26/17 08:36 1 PUFFS Lorazepam (Ativan Tab) 0.5 mg TID PRN PO 03/20/17 16:15 04/19/17 16:14 03/24/17 20:29 0.5 MG Metoclopramide HCl (Reglan Tab) 10 mg BIDM PO 03/20/17 17:00 04/19/17 16:59 03/26/17 08:36 10 MG Polysaccharide Iron Complex (Niferex-150 w/ Vit C Cap) 150 mg DAILY PO 03/21/17 09:00 04/20/17 08:59 03/26/17 08:34 150 MG Rosuvastatin Calcium (Crestor Tab) 20 mg DAILY PO 03/21/17 09:00 04/20/17 08:59 03/26/17 08:36 20 MG Sucralfate (Carafate Susp) 1 gm BID PO 03/20/17 21:00 04/19/17 20:59 03/26/17 08:36 1 GM Tramadol HCl (Ultram Tab) 50 mg Q6H PRN PO 03/20/17 16:15 04/19/17 16:14 03/26/17 08:46 50 MG Bisoprolol Fumarate (Bisoprolol Fumarate) 5 mg DAILY PO 03/21/17 09:00 04/20/17 08:59 03/26/17 08:35 5 MG Pantoprazole Sodium (Protonix Tab) 40 mg QAM PO 03/21/17 09:00 04/20/17 08:59 03/26/17 08:34 40 MG Miscellaneous Information (Order Awaiting Action) 1 ea QS N/A 03/21/17 00:00 04/20/17 00:00 Amitriptyline HCl (Elavil Tab) 100 mg DAILY@2100 PO 03/20/17 21:00 04/19/17 20:59 03/25/17 20:36 100 MG Heparin Sodium (Porcine) (Heparin 100 Unit/ml 5ml Flush) 5 ml PRN PRN IV 03/21/17 01:45 04/20/17 01:44 03/25/17 14:22 5 ML Ipratropium [place] (Atrovent 0.02% 0.5MG/2.5ML Neb) 0.5 mg Q6R INH 03/21/17 15:00 04/20/17 14:59 03/26/17 13:52 0.5 MG Levalbuterol (Xopenex 1.25MG/ 0.5ML Neb) 1.25 mg Q6R INH 03/21/17 15:00 04/20/17 14:59 03/26/17 13:52 1.25 MG Benzonatate (Tessalon Perles Cap) 100 mg TID PO 03/23/17 21:00 04/22/17 20:59 03/26/17 14:05 100 MG Amoxicillin/ Clavulanate Potassium (Augmentin Tab) 875 mg BIDM PO 03/25/17 17:00 04/01/17 16:59 03/26/17 08:35 875 MG Losartan Potassium (coZAAR TAB) 25 mg QAM PO 03/27/17 09:00 04/26/17 08:59
[2017-03-26] MEDS ORDERED: PRED10TA PO (14:48)
[2017-03-26] MEDS ORDERED: BENZ100C7 PO (14:48)
[2017-03-26] MEDS ORDERED: DXY100 PO (14:48)
[2017-03-26] MEDS ORDERED: IMDSR30 PO (14:48)
[2017-03-26] MEDS ORDERED: TRAM-10 PO (15:45)
--- NOTE | 2017-03-26 16:25 | Discharge Instructions ---
Discharge Instructions Date of Service Mar 26, 2017. Admission Reason for Admission: Hypoxia Discharge Discharge Diagnosis / Problem: COPD EXACERBATION Discharge Goals Goal(s): Diagnostic testing, Therapeutic intervention Activity Recommendations Activity Limitations: as noted below (NO HEAVY EXERTION UNTIL RE-EVALUATED BY PRIMARY CARE PHYSICIAN) Lifting Limitations: until after follow-up appointment Exercise/Sports Limitations: until after follow-up appointment . Instructions / Follow-Up Instructions / Follow-Up PLEASE REVIEW YOUR NEW MEDICATION LIST AND FOLLOW INSTRUCTIONS CAREFULLY. CALL PRIMARY CARE PHYSICIAN OR RETURN TO THE ER IMMEDIATELY IF WITH RECURRENCE/ WORSENING OF SYMPTOMS. TAKE YOUR BLOOD PRESSURE BEFORE TAKING YOUR BLOOD PRESSURE MEDICATION. DO NOT TAKE YOUR BLOOD PRESSURE MEDICATIONS IF THE TOP NUMBER OF YOUR BLOOD PRESSURE IS 110 OR BELOW. CALL YOUR PHYSICIAN PROMPTLY FOR ADVICE. FOLLOW UP WITH DR. TEJEDA ON Thursday03/31/17 AT 9:00AM. FOLLOW UP WITH DR. CASTLE IN 1 WEEK. Current Hospital Diet Patient's current hospital diet: AHA Diet (Heart Healthy) Discharge Diet Recommended Diet: AHA Diet (Heart Healthy) Procedures Procedures Performed: BRONCHOSCOPY Pending Studies Studies pending at discharge: no Medical Emergencies . Who to Call and When: Medical Emergencies: If at any time you feel your situation is an emergency, please call 911 immediately. . Non-Emergent Contact Non-Emergency issues call your: Primary Care Provider, Charge Auditor Call Non-Emergent contact if: you have a fever, your pain is not controlled, your pain is worsening, your pain is unusual for you, you have any medication questions . . "Provider Documentation" section prepared by Familia Lei. . VTE Core Measure Inpt VTE Proph given/why not?: Enoxaparin (Lovenox)SQ
--- NOTE | 2017-03-26 16:28 | Discharge Summary ---
Discharge Summary Date of Service Mar 26, 2017. Discharge Summary Admission Date: Mar 20, 2017 at 14:09 Discharge Date: Mar 26, 2017 Discharge Disposition: [facility] facility Principal Diagnosis: ACUTE HYPOXIC RESPIRATORY FAILURE s/p BRONCHOSCOPY COPD/ASTHMA EXACERBATION Secondary Diagnoses/Problems: Please refer to hospital course below. Procedures: TWO VIEW CHEST CLINICAL HISTORY: Hypoxia status post bronchoscopy.. FINDINGS: PA and lateral chest radiographs are compared to study dated and correlated with chest CT dated 01/16/2017. A left subclavian central venous infusion port is unchanged in position. The cardiomediastinal silhouette is unremarkable. There is mild atherosclerotic calcification of the thoracic aorta. There are foci of linear atelectasis present at both lung bases. The lungs are otherwise clear. No pleural effusion or pneumothorax is seen. The bony thorax appears intact. IMPRESSION: There is mild bibasilar atelectasis. No acute cardiopulmonary abnormality is seen. Electronically signed by: Yosi Mejia M.D. 03/20/2017 6:11 PM Consultations: Pulmonary Pending Studies/Follow-Up: Please refer to hospital course below. Medication Reconciliation New Medications: Prednisone Tab (Prednisone) 10 Mg Tab 10 MG PO UD for 8 Days, #13 TAB take 3 tabs po daily x 2 days, then take 2 tabs po daily x 2 days, then take 1 tab po daily, x 2 days, then take 1/2 tab po daily x 2 days, then STOP Tramadol (Ultram) 50 Mg Tab 50 MG PO Q6H PRN for Pain, #10 TAB Benzonatate (Benzonatate) 100 Mg Cap 100 MG PO TID PRN for Cough for 7 Days, #21 CAP 1 Refill Doxycycline Hyclate (Doxycycline Hyclate) 100 Mg Cap 100 MG PO BID for 1 Day, #2 CAP 0 Refills Isosorbide Mononitrate (Isosorbide Mononitrate ER) 30 Mg Tabcr 15 MG PO QAM for 30 Days, #15 TABS 2 Refills Continued Medications: Acyclovir (Zovirax) 800 Mg Tab 400 MG PO BID for 10 Days, TAB Albuterol Sulfate (Proair Hfa) 108 Mcg/ Aer 2 PUFFS INH QID PRN Allopurinol (Zyloprim) 300 Mg Tab 1 TAB PO DAILY for 30 Days, #30 TAB 5 Refills Amitriptyline Hcl (Elavil) 50 Mg Tab 100 MG PO DAILY, TAB Aspirin (Aspirin Chewable) 81 Mg Chew 81 MG PO DAILY, TAB Bisoprolol Fumarate (Zebeta) 5 Mg Tab 1 TAB PO DAILY for 30 Days, #30 TAB 5 Refills Escitalopram Oxalate (Lexapro) 20 Mg Tab 1 TAB PO DAILY for 90 Days, #90 TAB 3 Refills Fluticasone Furoate-Vilanterol (Breo Ellipta 200-25 Mcg/INH) 1 Inh Inh 1 PUFFS INH DAILY Fluticasone Propionate (Flonase Nasal [place]) 120 Sprays/6000 Mcg Inha 2 SPRAYS TEJAS DAILY, BTL Fluticasone Propionate Hfa (Flovent Hfa 110MCG Inhaler) 110 Mcg/ Aer 2 PUFF INH DAILY, INH Hydrocodone W/ Homatropine (Hycodan 5/1.5MG 5 Ml) 1 Syp Syp 5 ML PO Q6H PRN for Cough for 9 Days, #180 ML Lorazepam (Ativan) 0.5 Mg Tab 0.5 MG PO TID PRN for Anxiety, TAB Losartan Potassium (Cozaar) 25 Mg Tab 25 MG PO DAILY, TAB Metoclopramide Hcl (Reglan) 10 Mg Tab 10 MG PO BIDM, TAB Omeprazole (Prilosec) 20 Mg Cap 40 MG PO DAILY, CAP Polysaccharide Iron Complex (Poly-Iron 150) 150 Mg Cap 1 CAP PO DAILY Rosuvastatin Calcium (Crestor) 20 Mg Tab 1 TAB PO DAILY for 30 Days, #30 TAB 5 Refills Sucralfate (Carafate) 1 Gm/10 Ml Celi 10 ML PO BID for 6 Days, #120 ML 1 Refill Tramadol (Ultram) 50 Mg Tab 50 MG PO Q6H PRN for Pain, TAB Discontinued Medications: Isosorbide Mononitrate Ext Rel (Imdur Ext Rel) 30 Mg Ertab 30 MG PO QAM, TAB Admission Information HPI (per Admitting provider): 61 year old male who presented for a planned bronchoscopy today for evaluation of persistent cough and mucous production. Patient has history of mantel cell lymphoma s/p treatment and currently in remission. He developed a cough about 7 months ago. He has been on several rounds of antibiotics and steroids and symptoms have not improved. Last course of antibiotics and steroids was about 2 months ago. Post procedure today patient developed chest tightness and hypoxia into the mid 80s. He was given nebulizer treatment and IV solumedrol. Chest tightness improved however patient is persistently requiring oxygen which he does not wear at home. He reports that his lungs felt tight. He denies chest pain and pressure. He had some lightheadedness after taking several deep breaths. No other lightheadedness, dizziness, diaphoresis, or syncopal events. He denies abdominal pain, nausea, vomiting, or diarrhea. He denies urinary symptoms. At the time of my exam, patient is resting without acute distress. He is saturating well on 2L oxygen. Physical Exam (per Admitting): General Appearance: WD/WN, no apparent distress Head: normocephalic, atraumatic Eyes: normal inspection, EOMI, sclerae normal ENT: hearing grossly normal, + pertinent finding (mucous membranes moist) Neck: supple, no JVD, trachea midline Respiratory/Chest: no respiratory distress, + decreased breath sounds Cardiovascular: regular rate, rhythm, no edema, normal peripheral pulses Abdomen/GI: normal bowel sounds, non tender, soft, no organomegaly Extremities/Musculoskelatal: normal inspection, no calf tenderness, normal capillary refill Neurologic/Psych: no motor/sensory deficits, alert, normal mood/affect, oriented x 3 Skin: normal color, warm/dry Hospital Course ACUTE HYPOXIC RESPIRATORY FAILURE s/p BRONCHOSCOPY COPD/ASTHMA EXACERBATION - sent for admission by Dr. Collins as patient was having wheezing and hypoxia post bronchoscopy - CXR: no acute infiltrates - Bronch Washing studies: negative so far repeat CXR: unchanged - received Doxycycline x 6 days, Prednisone and Nebs received Zosyn/ Augmentin x 2 days followed by Pulmonary Dr. Mars/ Dr. Mishra - weaned off oxygen, clinically improved 2 step oxygen test done: no oxygen supplement needed cleared for discharge d/c on: 1 more day of Doxycycline to complete 7 days Prednisone taper starting at 30mg continue usual Breo, Flovent, Albuterol PRN HYPOTENSION - episode of hypotension during admission, syst bp 80s - no other signs of sepsis - held ISMN, Lisinopril, gradually resumed IV fluids given resolved - continue usual Bisoprolol, Lisinopril reduce Imdur to 15mg po daily monitor BP closely as outpatient PROLONGED QTC - 502--> 479--> 502 - avoid QTC prolonging agents - monitor as outpatient while on Lexapro CAD - EKG without acute ST changes enzymes negative - continue ASA, beta keenan, nitrate, and statin ANXIETY, DEPRESSION - stable - continue home meds HX MANTLE CELL LYMPHOMA - in remission LEFT SIDED HEADACHE - patient feels this is his usual migraine - Tramadol PRN improving DVT PROPHYLAXIS - SQ Lovenox DISPO d/c home ff up: 5am dr. jack montes ff up with Pulmonary Dr. Collins in 1 week Total time spent on discharge = 50 minutes This includes examination of the patient, discharge planning, medication reconciliation, and communication with other providers. Discharge Instructions Discharge Instructions Date of Service Mar 26, 2017. Admission Reason for Admission: Hypoxia Discharge Discharge Diagnosis / Problem: COPD EXACERBATION Discharge Goals Goal(s): Diagnostic testing, Therapeutic intervention Activity Recommendations Activity Limitations: as noted below (NO HEAVY EXERTION UNTIL RE-EVALUATED BY PRIMARY CARE PHYSICIAN) Lifting Limitations: until after follow-up appointment Exercise/Sports Limitations: until after follow-up appointment . Instructions / Follow-Up Instructions / Follow-Up PLEASE REVIEW YOUR NEW MEDICATION LIST AND FOLLOW INSTRUCTIONS CAREFULLY. CALL PRIMARY CARE PHYSICIAN OR RETURN TO THE ER IMMEDIATELY IF WITH RECURRENCE/ WORSENING OF SYMPTOMS. TAKE YOUR BLOOD PRESSURE BEFORE TAKING YOUR BLOOD PRESSURE MEDICATION. DO NOT TAKE YOUR BLOOD PRESSURE MEDICATIONS IF THE TOP NUMBER OF YOUR BLOOD PRESSURE IS 110 OR BELOW. CALL YOUR PHYSICIAN PROMPTLY FOR ADVICE. FOLLOW UP WITH DR. TEJEDA ON Thursday03/31/17 AT 9:00AM. FOLLOW UP WITH DR. COLLINS IN 1 WEEK. Current Hospital Diet Patient's current hospital diet: AHA Diet (Heart Healthy) Discharge Diet Recommended Diet: AHA Diet (Heart Healthy) Procedures Procedures Performed: BRONCHOSCOPY Pending Studies Studies pending at discharge: no Medical Emergencies . Who to Call and When: Medical Emergencies: If at any time you feel your situation is an emergency, please call 911 immediately. . Non-Emergent Contact Non-Emergency issues call your: Primary Care Provider, Dental Service Chief Call Non-Emergent contact if: you have a fever, your pain is not controlled, your pain is worsening, your pain is unusual for you, you have any medication questions . . "Provider Documentation" section prepared by Familia Lei. . VTE Core Measure Inpt VTE Proph given/why not?: Enoxaparin (Lovenox)SQ
[2017-03-26] MEDS ORDERED: MIDAZOLAM HCL 5 MG/ML 1 ML VIAL IV ONE (16:56)
[2017-03-26] MEDS ORDERED: LEVALBUTEROL 1.25MG/3ML NEB INH ONE (16:56)
[2017-03-26] MEDS ORDERED: LIDOCAINE 4% W/AFRIN NASAL SOLN 4ML ONE (16:56)
[2017-03-26] MEDS ORDERED: LIDOCAINE HCL 2% LOCAL 50ML VIAL INFIL ONE (16:56)
[2017-03-26] MEDS ORDERED: FENTANYL CITRATE INJ 50 MCG/1 ML 2 ML VIAL IV ONE (16:56)
[2017-03-27] MEDS ORDERED: ISOSORBIDE MONONITRATE 30 MG TABCR PO SCH (09:00)
[2017-03-27] MEDS ORDERED: LOSARTAN POTASSIUM 25 MG TAB PO SCH (09:00)
== END 2017-03-26 16:57 | disposition home health service (06) | DRG 166 ==
LOC: C.ACU 08:27 → C.MED 14:09 → ENRESERV 14:37
PROVIDERS: ADMIT Hospitalist; ATTEND Internal Medicine
PROC: 0B9J8ZX Drainage of Left Lower Lung Lobe, Via Natural or Artificial Opening Endoscopic, Diagnostic (ICD-10-PCS; principal; 2017-03-20 09:00)
PROC: 0B9G8ZX Drainage of Left Upper Lung Lobe, Via Natural or Artificial Opening Endoscopic, Diagnostic (ICD-10-PCS; principal; 2017-03-20 09:00)
PROC: 0B9C8ZX Drainage of Right Upper Lung Lobe, Via Natural or Artificial Opening Endoscopic, Diagnostic (ICD-10-PCS; principal; 2017-03-20 09:00)
PROC: 0B9H8ZX Drainage of Lung Lingula, Via Natural or Artificial Opening Endoscopic, Diagnostic (ICD-10-PCS; principal; 2017-03-20 09:00)
PROC: 0B9F8ZX Drainage of Right Lower Lung Lobe, Via Natural or Artificial Opening Endoscopic, Diagnostic (ICD-10-PCS; principal; 2017-03-20 09:00)
PROC: 0B9D8ZX Drainage of Right Middle Lung Lobe, Via Natural or Artificial Opening Endoscopic, Diagnostic (ICD-10-PCS; principal; 2017-03-20 09:00)
DX: J44.1 Chronic obstructive pulmonary disease with (acute) exacerbation (principal); J96.01 Acute respiratory failure with hypoxia; J45.901 Unspecified asthma with (acute) exacerbation; J84.9 Interstitial pulmonary disease, unspecified; J98.8 Other specified respiratory disorders; I95.9 Hypotension, unspecified; I45.81 Long QT syndrome; R00.0 Tachycardia, unspecified; T45.1X5S Adverse effect of antineoplastic and immunosuppressive drugs, sequela; G43.909 Migraine, unspecified, not intractable, without status migrainosus; I25.10 Atherosclerotic heart disease of native coronary artery without angina pectoris; D64.9 Anemia, unspecified; E78.00 Pure hypercholesterolemia, unspecified; I10 Essential (primary) hypertension; F41.9 Anxiety disorder, unspecified; F32.9 Major depressive disorder, single episode, unspecified; J30.9 Allergic rhinitis, unspecified; K21.0 Gastro-esophageal reflux disease with esophagitis; Z23 Encounter for immunization; Z77.090 Contact with and (suspected) exposure to asbestos; Z85.79 Personal history of other malignant neoplasms of lymphoid, hematopoietic and related tissues; Z87.891 Personal history of nicotine dependence; Z79.51 Long term (current) use of inhaled steroids; Z79.82 Long term (current) use of aspirin; Z79.891 Long term (current) use of opiate analgesic; Z79.899 Other long term (current) drug therapy

== ENCOUNTER → 2017-09-03 | Outpatient (CLI) | payer OTHER ==
[~2017-09-03] MED LIST changes: -ATOR10TA82 PO; +BENZ100C7 PO; +BISO5TAB3 PO; -BISOPROL PO; -CITA40TA12 PO; -CLR10 PO; +DXY100 PO; +ESCI1TAB18 PO; +FLUT1INH7 INH; -HYDR-5688 PO; +HYDR5SYP11 PO; +IMDSR30 PO; -ISOS30TA3 PO; -MAGN400T6 PO; +OPTIRAY 320 IV PRN; -OXYC-409 PO; -POTA20TA16 PO; +ROSU20TA PO; -TIOTCAP INH
--- NOTE | 2017-09-03 15:25 | DIAGNOSTIC IMAGING REPORT ---
ABD/PELVIS IV AND ORAL CONT CLINICAL HISTORY: 61 years-old Male presenting with NON HODGKINS LYMPHOMA. TECHNIQUE: Multidetector CT of the abdomen and pelvis was performed after the administration of oral and intravenous contrast. IV contrast: 94 mL of Optiray 320. A dose lowering technique was used consistent with the principles of ALARA (as low as reasonably achievable). COMPARISON: 07/04/2016. CT DOSE (mGy.cm): The estimated cumulative dose is 789.88 mGy.cm. FINDINGS: [employer] [facility] topogram: Unremarkable. Lung bases: Lungs and pleural spaces clear. Normal heart size. No pericardial or pleural effusion. Liver: Normal morphology. The density suggestive of hepatic steatosis. Dominant 2.3 cm hypodense lesion in the left hepatic lobe is indeterminate but most likely a benign hemangioma given the appearance on the current and prior exam. Several subcentimeter hypodensities scattered throughout the liver parenchyma (series 6 images 51, 54, 76, 84, 103, 107, 112). Many of these lesions were visible on the prior exam, suggesting hepatic cysts or hamartomas. Patent hepatic vasculature. Biliary: No intrahepatic or extrahepatic biliary ductal dilatation. Normal gallbladder. Pancreas: Normal. Spleen: Top normal in size, measuring 13 cm in maximal sagittal dimension, previously 13.3 cm. Adrenal glands: Normal. Kidneys and ureters: Cortical thinning noted at the upper and lower poles of the right kidney, which could suggest reflux nephropathy. No nephrolithiasis. Well-defined hypodense lesion in the lower pole the left kidney likely cyst. No hydronephrosis. Ureters normal. Bladder: Normal. Pelvic organs: Prostate and seminal vesicles normal. Bowel: Moderate stool burden throughout the mildly distended colon. The appendix is normal. No bowel obstruction. Peritoneal cavity: No free fluid or intraperitoneal gas. Lymph nodes: No enlarged lymph nodes in the abdomen or pelvis. Vasculature: Atherosclerosis of the normal caliber abdominal aorta. IVC patent. Abdominal wall: Normal. Musculoskeletal: Normal. IMPRESSION: 1. Stable to slight interval decrease in spinal megaly. The spleen is now top normal in size. No lymphadenopathy or other evidence of metastatic disease in the abdomen or pelvis. 2. Findings suggest constipation. Electronically signed by: Min Jarvis M.D. 09/03/2017 3:24 PM Dictated Date/Time: 09/03/2017 3:12 PM
--- NOTE | 2017-09-03 15:29 | DIAGNOSTIC IMAGING REPORT ---
CHEST CT WITH CONTRAST CT DOSE: HISTORY: NON HODGKINS LYMPHOMA TECHNIQUE: Multiaxial CT images of the chest were performed following the intravenous administration of contrast. A dose lowering technique was utilized adhering to the principles of ALARA. COMPARISON: Outside hospital 01/16/2017. Chest CT 07/04/2016. FINDINGS: No pneumothorax. No pleural effusions. Small amount of mucoid material within the left mainstem bronchus. 4 mm subpleural nodule within the left lung apex on image 45 is likely due to small amount of scarring. Mild emphysema. Stable 3 mm subpleural nodule within the right upper lobe on image 59. This is likely benign. No new or suspicious pulmonary nodules identified. Linear densities within the left lung base favor subsegmental atelectasis. No suspicious lytic or blastic osseous lesions. The spleen remains enlarged. No mediastinal, hilar, or axillary lymphadenopathy. The heart is normal in size. Approximate 50% narrowing within the proximal left subclavian artery. This remains unchanged. Normal caliber thoracic aorta. The heart is normal in size. The central pulmonary arteries are patent. IMPRESSION: No change compared to the prior study. No lymphadenopathy within the chest. Splenomegaly is better appreciated on the same day abdomen and pelvis CT. Electronically signed by: Robert Lopez M.D. 09/03/2017 3:27 PM Dictated Date/Time: 09/03/2017 3:17 PM
== END | disposition home or self-care (01) ==
LOC: C.CTS 12:54
PROVIDERS: ATTEND Internal Medicine Hematology & Oncology
DX: C83.10 Mantle cell lymphoma, unspecified site (principal)